=== PATIENT | male | born 1955 | race Caucasian/White ===

== ENCOUNTER 2017-11-22 14:23 | Inpatient (IN) | payer OTHER ==
[~2017-11-22] VITALS: Ht 172.7 cm; Wt 128.4 kg
[~2017-11-22 14:23] MED LIST: COUMADIN 10MG T10 M1 PO; COUMADIN PO; LOVENOX SQ; MICARDIS HCT 81 EACH PO; PERCOCET 5-3251 EACH PO; TARKA 4-240 MG1 EACH PO; ZOCOR 10 MG TAB10 MG PO
[2017-11-22 15:00] VITALS: BP 152/72
[2017-11-22] MEDS ORDERED: VENTOLIN HFA 1818 GM INH (15:18)
[2017-11-22] MEDS ORDERED: ATORVASTATIN CA40 MG PO (15:18)
[2017-11-22] MEDS ORDERED: NORCO 10-325 T1 EACH PO (15:19)
[2017-11-22] MEDS ORDERED: VERAPAMIL E.R240 M1 PO (15:20)
[2017-11-22] MEDS ORDERED: HYZAAR 100-12.1 EACH PO (15:20)
[2017-11-22] MEDS ORDERED: FISH OIL 1,001000 M2 PO (15:20)
[2017-11-22 15:27] LABS: ABSOLUTE BASOPHILS 0.2 thou/uL (0.0-0.2); ABSOLUTE EOSINOPHILS 0.5 thou/uL (0.0-0.7); ABSOLUTE LYMPHOCYTES 1.4 thou/uL (0.8-5.3); ABSOLUTE MONOCYTES 0.7 thou/uL (0.0-1.2); ABSOLUTE NEUTROPHILS 7.7 thou/uL (1.6-8.1); BASOPHILS 1.5 %; EOSINOPHILS 4.4 %; HEMATOCRIT 47.4 % (42.0-52.0); HEMOGLOBIN 15.9 gm/dL (14.0-18.0); LYMPHOCYTES 13.6 %; MCH 31.8 pg (26.0-34.0); MCHC 33.6 g/dL (28.0-37.0); MCV 94.7 fL (80.0-100.0); MONOCYTES 6.8 %; MPV 10.1 fl. (7.2-11.1); NUCLEATED RBCS 0 /100WBC; PLATELET COUNT* 126 thou/uL (150-400); POLYS 73.7 %; RBC 5.01 mil/uL (4.50-6.00); RDW-CV 14.5 % (10.5-14.5); WBC 10.5 thou/uL (4.0-11.0)
[2017-11-22 15:34] LABS: CREATININE 0.9 mg/dL (0.6-1.3)
[2017-11-22 15:53] LABS: PROTIME 97.7 Seconds (9.20-11.50)
[2017-11-22 15:55] LABS: INR 10.4
--- NOTE | 2017-11-22 18:59 | NUR ---
PATIENT ARRIVED DIRECT ADMIT AT 1500. PATIENT SETTLED TO ROOM. HISTORY, ASSESSMENT AND VITALS COMPLETED AND DOCUMENTED. PATIENT DENIES ANY PAIN. PATIENT HAS VENOUS STASIS TO BLE WITH A SKIN TEAR TO LLE. PATIENT IS UP AD JAISON IN ROOM. PATIENT DENIES ANY NEEDS AT THIS TIME. CALL LIGHT WITHIN REACH. WILL CONTINUE TO MONITOR.
[2017-11-22 20:00] VITALS: BP 161/84
--- NOTE | 2017-11-23 05:03 | NUR ---
PT SLEPT AT INTERVALS DURING THE NIGHT, NO IV, PLEASANT, UP AD JAISON, PRN PAIN MED AT HS FOR BACK PAIN, CALL LIGHT IN REACH, WILL CONTINUE TO MONITOR
[2017-11-23 08:00] VITALS: BP 137/65
[2017-11-23 09:37] LABS: PROTIME 58.8 Seconds (9.20-11.50)
[2017-11-23 09:45] LABS: INR 6.2
--- NOTE | 2017-11-23 16:09 | NUR ---
PER PATIENT'S STAFF NURSE, PATIENT TO HAVE UNNA BOOTS PLCED. HOWEVER, PATIENT LIKELY TO BE DISCHARGED TOMORROW. RECOMMENDED AND RECEIVED APPROVAL FOR USE OF TUBIGRIPS FOR EDEMA CONTROL INSTEAD THIS IS MANAGEABLE BY PATIENT AND HIS SPOUSE AT HOME. PATIENT INSTRUCTED ON ITS USE WITH GOOD UNDERSTANDING ACHIEVED. INSTRUCTED TO APPLY IN THE MORNING AN HE MAY REMOVE AT BEDTIME.
[2017-11-23 16:26] VITALS: BP 131/66
--- NOTE | 2017-11-23 17:06 | NUR ---
PT.SITTING ON SIDE OF BED. STATED HE LIVES WITH HIS . SHE CAN ASSIST HIM IF NEEDED. HE DOESN'T USE ANY DME. HAS A CANE IF NEEDED. NO HX OF HH OR SNF. HE IS INDEPENDENT AT HOME. HE SAID HE THINKS HE HAS BEEN TAKING THE WRONG DOSEAGE ON HIS COUMADIN. WOUND NURSE PUT TUBIGRIP STOCKINGS ON PT.FOR POOR CIRCULATION. HE SAID HE AND SHOULD BE ABLE TO APPLY THESE AT HOME. CM WILL FOLLOW.
[2017-11-23 17:43] LABS: URINE BILIRUBIN NEGATIVE (Negative); URINE BLOOD 3+ (Negative); URINE CLARITY CLOUDY; URINE COLOR BROWN; URINE GLUCOSE-RANDOM TRACE (Negative); URINE KETONES 1+ (Negative); URINE LEUKOCYTES 1+ (Negative); URINE NITRITE POSITIVE (Negative); URINE PROTEIN 3+ (Negative); URINE SPECIFIC GRAVITY 1.025 (1.005-1.030)
[2017-11-23 17:48] LABS: SQUAMOUS 0-3 Few /LPF (0-3); URINE RBC >20 Many /HPF (0-2)
[2017-11-23 17:49] LABS: BACTERIA >30 Many /HPF (None Seen); CASTS None Seen /LPF (None Seen); CRYSTALS None Seen /LPF (None Seen); URINE WBC >25 Many /HPF (0-5)
--- NOTE | 2017-11-23 18:17 | NUR ---
PATIENT UP IN CHAIR EATING DINNER. PATIENT IS UP AD JAISON IN ROOM. PATIENT HAD COMPLAINTS OF BACK PAIN THIS AM, TREATED ADEQUATELY WITH HYDROCODONE. PATIENT SEEN BY WOUND NURSE THIS AFTERNOON AND TUBIGRIPS APPLIED TO BLE. PATIENT DENIES ANY NEEDS AT THIS TIME. CALL LIGHT WITHIN REACH. WILL CONTINUE TO MONITOR.
[2017-11-23 20:00] VITALS: BP 151/71
[2017-11-24 04:53] LABS: HEMATOCRIT 44.2 % (42.0-52.0); HEMOGLOBIN 14.6 gm/dL (14.0-18.0); MCH 31.6 pg (26.0-34.0); MCV 95.8 fL (80.0-100.0); MPV 10.4 fl. (7.2-11.1); RBC 4.61 mil/uL (4.50-6.00); RDW-CV 14.2 % (10.5-14.5); WBC 7.6 thou/uL (4.0-11.0)
[2017-11-24 05:04] LABS: PROTIME 29.4 Seconds (9.20-11.50)
--- NOTE | 2017-11-24 05:23 | NUR ---
PT SLEPT SOUNDLY DURING THE NIGHT, UP AD JAISON, SLEPT WITH 02 AT 2L/NC, CALL LIGHT IN REACH, PRN PAIN MED AT HS, WILL CONTINUE TO MONITOR
[2017-11-24 05:57] LABS: INR 3.1
[2017-11-24 06:33] LABS: CALCIUM 8.6 mg/dL (8.5-10.1); CREATININE 0.7 mg/dL (0.6-1.3)
[2017-11-24 07:55] VITALS: BP 131/65
[2017-11-24 10:46] VITALS: BP 131/65
--- NOTE | 2017-11-24 11:35 | NUR ---
PATIENT A&OX4, ROOM AIR, NO IV ACCESS, UP AD JAISON, WITH STEADY GAIT. NO C/O PAIN/N/V. NO OTHER CONCERNS AT THIS TIME. D/C PHOTO TAKEN OF ABRASION ON LLE, DSG CHANGED. REVIEWED DISCHARGE PAPERWORK WITH PATIENT WHILE AT BEDSIDE. SPOKE WITH PATIENT THAT THERE ARE LABS THAT WERE DRAWN THAT RESULTS ARE PENDING AND TO MAKE SURE TO F/U WITH PCP FOR RESULTS. VERBALIZES UNDERSTANDING, WITH NO FURTHER QUESTIONS. PATIENT LEFT UNIT AT 1110 AMBULATORY WITH ALL BELONGINGS, NOTHING LEFT BEHIND. APPROPRIATE AND COOPORATIVE WITH CARE.
[2017-11-24 18:08] LABS: IgA 194 mg/dL (61-437); IgG 1002 mg/dL (700-1600); IgM 33 mg/dL (20-172)
[2017-11-27 15:10] LABS: GLOBULIN TOTAL 2.9 g/dL (2.2-3.9); M-SPIKE Not Observed g/dL (Not Observed)
[2017-11-28 09:08] LABS: URINE PROTEIN (MG/DL) 122.2 mg/dL (Not Estab.)
== END 2017-11-24 11:10 | disposition home or self-care (01) | DRG 813 ==
LOC: M.3W 14:23
PROVIDERS: ADMIT Internal Medicine
DX: D68.32 Hemorrhagic disorder due to extrinsic circulating anticoagulants (principal); N39.0 Urinary tract infection, site not specified; Z68.41 Body mass index [BMI] 40.0-44.9, adult; E66.01 Morbid (severe) obesity due to excess calories; I10 Essential (primary) hypertension; M48.00 Spinal stenosis, site unspecified; G47.33 Obstructive sleep apnea (adult) (pediatric); Z86.718 Personal history of other venous thrombosis and embolism; Z87.891 Personal history of nicotine dependence; Z79.01 Long term (current) use of anticoagulants; Z79.899 Other long term (current) drug therapy; R31.9 Hematuria, unspecified; T45.515A Adverse effect of anticoagulants, initial encounter

== ENCOUNTER 2021-04-27 09:52 | Inpatient (IN) | payer OTHER ==
[~2021-04-27] VITALS: Ht 172.7 cm; Wt 132.7 kg
--- NOTE | ~2021-04-27 | PROC ---
[address] [address] PROCEDURE REPORT Name: EAMON SAN Room: [address] IN M.R.#: [id number] Admission: 04/27/21 Attend Phys: Jason Nagy Discharge: Date of : 55 Report #: [id number] THIS REPORT FOR: cc: Carroll Chandler Steve T. DO [facility],Medical Records Staff ~ For GI report, please see the Provation report in Perceptive 7 content. By: [id number] Records Staff [place] /KAREN
--- NOTE | ~2021-04-27 | PROC ---
[address] [address] PROCEDURE REPORT Name: EAMON SAN Room: [address] IN M.R.#: [id number] Admission: 04/27/21 Attend Phys: Jason Nagy Discharge: 05/01/21 Date of : 55 Report #: [id number] THIS REPORT FOR: cc: Carroll Chandler Steve T. DO [facility],Medical Records Staff ~ For GI report, please see the Provation report in Perceptive 7 content. By: [id number] Records Staff [place] /KAREN
[~2021-04-27 09:52] MED LIST changes: +ATORVASTATIN CA40 MG PO; +FISH OIL 1,001000 M2 PO; +HYZAAR 100-12.1 EACH PO; +NORCO 10-325 T1 EACH PO; +VENTOLIN HFA 1818 GM INH; +VERAPAMIL E.R240 M1 PO
[2021-04-27 09:58] VITALS: BP 116/57
[2021-04-27 10:49] LABS: ABSOLUTE BASOPHILS 0.1 thou/uL (0.0-0.2); ABSOLUTE EOSINOPHILS 0.1 thou/uL (0.0-0.7); ABSOLUTE LYMPHOCYTES 0.8 thou/uL (0.8-5.3); ABSOLUTE MONOCYTES 0.6 thou/uL (0.0-1.2); ABSOLUTE NEUTROPHILS 8.6 thou/uL (1.6-8.1); EOSINOPHILS 0.5 %; HEMATOCRIT 20.7 % (42.0-52.0); LYMPHOCYTES 7.9 %; MCH 33.1 pg (26.0-34.0); MCHC 33.6 g/dL (28.0-37.0); MCV 98.5 fL (80.0-100.0); MONOCYTES 6.1 %; MPV 8.7 fl. (7.2-11.1); NUCLEATED RBCS 0 /100WBC; PLATELET COUNT* 249 thou/uL (150-400); POLYS 84.5 %; RDW-CV 16.8 % (10.5-14.5); WBC 10.2 thou/uL (4.0-11.0)
[2021-04-27 10:58] LABS: CALCIUM 8.1 mg/dL (8.5-10.1); CREATININE 0.9 mg/dL (0.6-1.3); POTASSIUM 3.9 mmol/L (3.5-5.1)
[2021-04-27 11:02] LABS: ALBUMIN 2.8 g/dL (3.4-5.0); TOTAL BILIRUBIN 0.3 mg/dL (<0.1-1.0); TOTAL PROTEIN 6.3 g/dL (6.4-8.2)
[2021-04-27 11:20] LABS: APTT 31.8 Seconds (25.0-31.3); INR 1.7; PROTIME 17.2 Seconds (9.20-11.50)
[2021-04-27 13:33] VITALS: BP 107/42
[2021-04-27 14:00] VITALS: BP 105/40
--- NOTE | 2021-04-27 15:45 | EKG ---
[place] [address] ELECTROCARDIOGRAM REPORT Name: EAMON SAN Annelise Room: [place] [address] ADM IN .R.#: [id number] Admission: 04/27/21 Attend Phys: Caleb Koo Discharge: Date of : 55 Date of Service: 04/27/21 1104 Report #: [id number] THIS REPORT FOR: //name// 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 04/27/21 1545 1104 1104 Denver Garland MD, [facility] /EPI
[2021-04-27 16:49] LABS: HEMATOCRIT 20.8 % (42.0-52.0); HEMOGLOBIN 7.1 gm/dL (14.0-18.0)
[2021-04-27 20:00] VITALS: BP 113/53
[2021-04-28 00:44] VITALS: BP 105/49
[2021-04-28 04:00] VITALS: BP 121/54
[2021-04-28 04:15] LABS: HEMATOCRIT 20.5 % (42.0-52.0); MCHC 34.1 g/dL (28.0-37.0); MCV 96.6 fL (80.0-100.0); MPV 8.5 fl. (7.2-11.1); RBC 2.13 mil/uL (4.50-6.00); RDW-CV 18.2 % (10.5-14.5); WBC 7.5 thou/uL (4.0-11.0)
--- NOTE | 2021-04-28 05:31 | NUR ---
PT SLEPT ON AND OFF OVERNIGHT. UP IN RECLINER FOR COMFORT. RFA IVF INFUSING PER PUMP. NPO SINCE MIDNIGHT, GI TO SEE PT TODAY. NO BLOODY STOOLS REPORTED OVERNIGHT. VOIDING WITHOUT DIFFICULTY. O2 2L NC PER HOME. RT INHALER PRN. TELE SR PAC. TOLERATING CLEARS BEFORE MIDNIGHT WITHOUT DIFFICULTY. ABLE TO USE CALL LITE AND MAKE NEEDS KNOWN.
[2021-04-28 09:05] VITALS: BP 111/53
[2021-04-28 12:58] VITALS: BP 117/53
[2021-04-28] MEDS ORDERED: FUROSEMIDE 40 M40 MG PO (13:20)
--- NOTE | 2021-04-28 13:53 | NUR ---
Pt is A&O. Resides at home with . Independent. Pt has a cane at home that he can use for mobility if needed. No hx of HH or SNF. Goal is home at dc, no needs anticipated. Pt to have EGD today, anticipate dc tomorrow.
[2021-04-28 16:31] VITALS: BP 109/52
[2021-04-28 20:00] VITALS: BP 115/57; BP 92/55
[2021-04-29] VITALS: BP 145/59
[2021-04-29 04:00] VITALS: BP 111/61
[2021-04-29 04:16] LABS: ABSOLUTE BASOPHILS 0.1 thou/uL (0.0-0.2); ABSOLUTE EOSINOPHILS 0.1 thou/uL (0.0-0.7); ABSOLUTE LYMPHOCYTES 0.8 thou/uL (0.8-5.3); ABSOLUTE MONOCYTES 0.8 thou/uL (0.0-1.2); ABSOLUTE NEUTROPHILS 8.2 thou/uL (1.6-8.1); BASOPHILS 0.5 %; EOSINOPHILS 0.6 %; HEMATOCRIT 21.2 % (42.0-52.0); HEMOGLOBIN 7.2 gm/dL (14.0-18.0); LYMPHOCYTES 8.1 %; MCH 33.2 pg (26.0-34.0); MCHC 33.8 g/dL (28.0-37.0); MCV 98.3 fL (80.0-100.0); MONOCYTES 8.1 %; MPV 8.6 fl. (7.2-11.1); NUCLEATED RBCS 0 /100WBC; PLATELET COUNT* 205 thou/uL (150-400); POLYS 82.7 %; RBC 2.16 mil/uL (4.50-6.00); RDW-CV 18.9 % (10.5-14.5); WBC 9.9 thou/uL (4.0-11.0)
[2021-04-29 04:28] LABS: INR 1.1; PROTIME 11.6 Seconds (9.20-11.50)
[2021-04-29 04:38] LABS: ALBUMIN 2.5 g/dL (3.4-5.0); CALCIUM 7.8 mg/dL (8.5-10.1); CREATININE 0.7 mg/dL (0.6-1.3); TOTAL BILIRUBIN 0.3 mg/dL (<0.1-1.0); TOTAL PROTEIN 5.9 g/dL (6.4-8.2)
--- NOTE | 2021-04-29 04:41 | NUR ---
ASSUMED PT CARE AT APPROX 1930. PT IS AWAKE AND ORIENTED X4. PT IS TRACING SR/ST ON THE FIRE CHIEF. PT IS NOT IN RESPIRATORY DISTRESS, NO DESATURATIONS NOTED ON 2L OF O2/NC. PT C/O LEFT SIDE RIB PAIN RELIEVED BY PAIN MEDS GIVEN PER NOV. NO ACUTE CHANGES THIS SHIFT. CALL LIGHT WITHIN REACH. HOURLY ROUNDING DONE FOR PT SAFETY.
--- NOTE | 2021-04-29 07:05 | NUR ---
CHANGE OF SHIFT REPORT GIVEN PATIENT SEEN IN ROOM SITTING IN CHAIR ASSUMED PATIENT CARE
[2021-04-29 08:00] VITALS: BP 114/52
[2021-04-29 12:01] VITALS: BP 118/60
--- NOTE | 2021-04-29 13:51 | NUR ---
Anticipate dc tomorrow. Pt to have colon tomorrow.
[2021-04-29 16:57] VITALS: BP 105/51
[2021-04-29 20:00] VITALS: BP 110/62
[2021-04-30] VITALS: BP 131/50
[2021-04-30 00:05] VITALS: BP 131/50
[2021-04-30 04:00] VITALS: BP 130/66
[2021-04-30 04:40] LABS: ABSOLUTE EOSINOPHILS 0.1 thou/uL (0.0-0.7); ABSOLUTE LYMPHOCYTES 0.6 thou/uL (0.8-5.3); ABSOLUTE MONOCYTES 0.9 thou/uL (0.0-1.2); ABSOLUTE NEUTROPHILS 7.2 thou/uL (1.6-8.1); BASOPHILS 0.5 %; EOSINOPHILS 0.7 %; HEMATOCRIT 20.8 % (42.0-52.0); LYMPHOCYTES 7.3 %; MCH 33.1 pg (26.0-34.0); MCHC 33.8 g/dL (28.0-37.0); MCV 97.8 fL (80.0-100.0); MONOCYTES 10.2 %; MPV 8.9 fl. (7.2-11.1); NUCLEATED RBCS 0 /100WBC; PLATELET COUNT* 206 thou/uL (150-400); POLYS 81.3 %; RBC 2.12 mil/uL (4.50-6.00); RDW-CV 17.5 % (10.5-14.5); WBC 8.8 thou/uL (4.0-11.0)
[2021-04-30 05:11] LABS: ANION GAP < 0 mmol/L (7-16); BUN 9 mg/dL (7-18); CALCIUM 7.8 mg/dL (8.5-10.1); CHLORIDE 105 mmol/L (98-107); CO2 34 mmol/L (21-32); CREATININE 0.7 mg/dL (0.6-1.3); GLUCOSE 98 mg/dL (70-99); SODIUM 138 mmol/L (136-145)
[2021-04-30 05:14] LABS: INR 1.1; PROTIME 11.4 Seconds (9.20-11.50)
--- NOTE | 2021-04-30 06:56 | NUR ---
PT COMPLETED BOWEL PREP ORDERED. LAST BM THIS NURSE SAW WAS WATERY YELLOW WITH SMALL AMOUNT FLECKS PRESENT. DULCOLAX TABS GIVEN THIS MORNING ORDERED. UP AD JAISON TO BR. O2 2L NC. ABLE TO USE CALL LITE AND MAKE NEEDS KNOWN.
[2021-04-30 08:57] VITALS: BP 120/49
--- NOTE | 2021-04-30 12:19 | NUR ---
Pt to dc home post colonoscopy today. No needs.
--- NOTE | 2021-04-30 15:08 | PATH ---
[address] [address] PATHOLOGY RPT PROCEDURE Name: MENADIEGO R Room: [address] IN M.R.#: [id number] Admission: 04/27/21 Date of : 55 Discharge: Report #: [id number] Path Case #: [id number] [facility] Accession Number: [id number] . 01 Material submitted: . Y - ANTRAL BIOPSY FOR H. PYLORI . 01 Clinical history: . EGD IN OR . 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 (ZACK:oh; 04/30/2021) . Special stain: H. pylori immuno QMS 04/30/2021 1148 Local . 02 Electronically signed: . Han Carpenter MD, Pathologist NPI- [id number] . 01 Gross description: . Received in formalin labeled "Mena, Diego, antral biopsy" is a fragment of rodriguez-brown soft tissue measuring 0.3 x 0.3 x 0.1 cm. The specimen is submitted entirely in A1. ([facility]; 04/29/2021) [facility] 04/30/2021 1146 Local . 02 Pathologist provided ICD-10: K29.50 . 02 CPT . 795962, [id number] Specimen Comment: A courtesy copy of this report has been sent to [phone] Specimen Comment: [phone], Specimen Comment: Report sent to , DR BARBOSA / DR JORDAN Performed at: 01 [facility] [address], [place] [address] MD Ketan Reynolds MD Phone: [phone] Performed at: 02 [facility] [address], [place], [place] [id number] MD Han Carpenter MD Phone: [phone]
[2021-04-30 16:00] VITALS: BP 111/50
[2021-04-30 20:00] VITALS: BP 136/72
[2021-05-01 01:12] VITALS: BP 102/54
[2021-05-01 04:29] LABS: HEMOGLOBIN 7.5 gm/dL (14.0-18.0); MCHC 32.8 g/dL (28.0-37.0); MCV 97.6 fL (80.0-100.0); MPV 8.8 fl. (7.2-11.1); RBC 2.36 mil/uL (4.50-6.00); RDW-CV 16.8 % (10.5-14.5)
[2021-05-01 04:35] LABS: CALCIUM 7.6 mg/dL (8.5-10.1); CREATININE 0.7 mg/dL (0.6-1.3)
--- NOTE | 2021-05-01 05:33 | NUR ---
PATIENT SLEPT WELL IN THE RECLINER. PT UP TO BATHROOM WITH USE OF CANE. PT IS SALINE LOCKED AND ON 2L PER NASAL CANNULA. PT ST ON THE WREATH AND GARLAND MAKER HAND. PT DENIES PAIN/NAUSEA. FREQUENTLY USED ITEMS AND CALL LIGHT WITHIN REACH. WILL CONTINUE TO MONITOR.
[2021-05-01 06:03] VITALS: BP 133/68
[2021-05-01 08:08] VITALS: BP 126/56
[2021-05-01] MEDS ORDERED: IRON325 PO (08:29)
[2021-05-01 11:20] VITALS: BP 126/56
[2021-05-01 13:58] VITALS: BP 126/56
--- NOTE | 2021-05-01 13:59 | NUR ---
PATIENT GIVEN DISCHARGE INSTRUCTIONS AND MEDICATIONS REVIEWED. IV REMOVED. PATIENT DENIES ANY PAIN/QUESTIONS/CONCERNS PRIOR TO DISHCARGE. PATIENT LEFT UNIT WITH PERSONAL BELONGINGS VIA W/C, ACCOMPANIED BY NURSING STAFF AT APPROX. 1358 TO MEET AT ER.
== END 2021-05-01 13:58 | disposition home or self-care (01) | DRG 377 ==
LOC: M.ERS 09:52 → M.TBA-ER 11:41 → M.2W 11:41
PROVIDERS: Internal Medicine; Internal Medicine Gastroenterology; Nurse Practitioner Family; ADMIT Internal Medicine; ATTEND Internal Medicine
PROC: 30233N1 Transfusion of Nonautologous Red Blood Cells into Peripheral Vein, Percutaneous Approach (ICD-10-PCS; principal; 2021-04-27)
PROC: 0DB68ZX Excision of Stomach, Via Natural or Artificial Opening Endoscopic, Diagnostic (ICD-10-PCS; 2021-04-28)
PROC: 0DJD8ZZ Inspection of Lower Intestinal Tract, Via Natural or Artificial Opening Endoscopic (ICD-10-PCS; 2021-04-30)
DX: K26.4 Chronic or unspecified duodenal ulcer with hemorrhage (principal); J12.9 Viral pneumonia, unspecified; D62 Acute posthemorrhagic anemia; D68.51 Activated protein C resistance; K29.70 Gastritis, unspecified, without bleeding; I10 Essential (primary) hypertension; K31.819 Angiodysplasia of stomach and duodenum without bleeding; D12.6 Benign neoplasm of colon, unspecified; K57.30 Diverticulosis of large intestine without perforation or abscess without bleeding; Z20.822 Contact with and (suspected) exposure to COVID-19; Z86.718 Personal history of other venous thrombosis and embolism; Z79.01 Long term (current) use of anticoagulants; Z79.899 Other long term (current) drug therapy; Z87.891 Personal history of nicotine dependence; Z72.89 Other problems related to lifestyle

== ENCOUNTER 2021-05-12 16:40 | Inpatient (IN) | payer OTHER ==
[~2021-05-12] VITALS: Ht 172.7 cm; Wt 122.5 kg
--- NOTE | ~2021-05-12 | PROC ---
[address] [address] PROCEDURE REPORT Name: EAMON SAN Room: [address] ADM IN M.R.#: [id number] Admission: 05/12/21 Attend Phys: Jason Christian Discharge: Date of : 55 Report #: [id number] THIS REPORT FOR: cc: Carroll Chandler Steve T. DO [facility],Medical Records Staff ~ For GI report, please see the Provation report in Perceptive 7 content. By: 1314Medical Records Staff [place] /KAREN
[~2021-05-12 16:40] MED LIST changes: +FUROSEMIDE 40 M40 MG PO; +IRON325 PO
[2021-05-12 16:44] VITALS: BP 136/73
[2021-05-12 17:30] LABS: HEMATOCRIT 20.9 % (42.0-52.0); MCH 27.1 pg (26.0-34.0); MCHC 30.2 g/dL (28.0-37.0); MCV 89.8 fL (80.0-100.0); MPV 8.6 fl. (7.2-11.1); NUCLEATED RBCS 0 /100WBC; PLATELET COUNT* 493 thou/uL (150-400); RBC 2.33 mil/uL (4.50-6.00); RDW-CV 21.2 % (10.5-14.5); WBC 24.1 thou/uL (4.0-11.0)
[2021-05-12 17:37] LABS: HEMOGLOBIN 6.3 gm/dL (14.0-18.0)
[2021-05-12 17:38] LABS: CALCIUM 8.3 mg/dL (8.5-10.1); CREATININE 0.9 mg/dL (0.6-1.3); POTASSIUM 3.9 mmol/L (3.5-5.1)
[2021-05-12 17:43] LABS: ALBUMIN 1.6 g/dL (3.4-5.0); TOTAL BILIRUBIN 0.2 mg/dL (<0.1-1.0)
[2021-05-12 17:44] LABS: PROTIME > 90.0 Seconds (9.20-11.50)
[2021-05-12 17:48] LABS: INR > 9.8
[2021-05-12 18:56] LABS: ABSOLUTE MONOCYTES 1.2 thou/uL (0.0-1.2); ABSOLUTE NEUTROPHILS 21.9 thou/uL (1.6-8.1)
[2021-05-12 18:57] LABS: HYPOCHROMASIA 2+; PLATELET ESTIMATE ADEQUATE; POLYCHROMASIA 1+
[2021-05-12 18:58] LABS: ANISOCYTOSIS 2+
[2021-05-12 22:00] VITALS: BP 103/65
--- NOTE | 2021-05-12 23:08 | NUR ---
BLOOD TRANSFUSION STARTED AT 2308. SEE BLOOD TRANSFUSION FLOW SHEET.
[2021-05-13] VITALS (7 sets, daily range): BP systolic 99–117; BP diastolic 48–66
[2021-05-13 11:19] LABS: PROTIME 42.5 Seconds (9.20-11.50)
[2021-05-13 11:25] LABS: INR 4.4
--- NOTE | 2021-05-13 12:37 | NUR ---
CM SPK WITH PT WHO WAS AT BESIDE. PT LIVES HOME WITH SPOUSE. PT HAD O2 APPLIED AND USES O2 AT HOME ON 5L PER IT WAS INCREASED FROM 3L. PT ALSO USES CANE. PT IS GENERALLY ACTIV, DRIVES A VEHICLE AND INDEPENDENT WITH ADLS. PT HAS NO HX WITH HH OR SNF. CM TO CON TO FOLLOW TO ASSIST WITH D/C NEEDS.
[2021-05-13 12:41] LABS: ABSOLUTE BASOPHILS 0.1 thou/uL (0.0-0.2); ABSOLUTE LYMPHOCYTES 0.7 thou/uL (0.8-5.3); ABSOLUTE MONOCYTES 1.5 thou/uL (0.0-1.2); ABSOLUTE NEUTROPHILS 22.4 thou/uL (1.6-8.1); BASOPHILS 0.4 %; EOSINOPHILS 0.1 %; HEMATOCRIT 20.7 % (42.0-52.0); MCH 27.4 pg (26.0-34.0); MCHC 30.6 g/dL (28.0-37.0); MCV 89.8 fL (80.0-100.0); MPV 8.6 fl. (7.2-11.1); NUCLEATED RBCS 0 /100WBC; PLATELET COUNT* 472 thou/uL (150-400); POLYS 90.5 %; RBC 2.31 mil/uL (4.50-6.00); RDW-CV 19.8 % (10.5-14.5); WBC 24.8 thou/uL (4.0-11.0)
[2021-05-13 12:51] LABS: HEMOGLOBIN 6.3 gm/dL (14.0-18.0)
[2021-05-14 02:49] LABS: HEMATOCRIT 22.7 % (42.0-52.0)
[2021-05-14 02:52] LABS: HEMOGLOBIN 6.9 gm/dL (14.0-18.0)
[2021-05-14 02:53] LABS: PROTIME 29.5 Seconds (9.20-11.50)
[2021-05-14 03:06] VITALS: BP 113/60; BP 121/58; BP 122/61; BP 132/61
[2021-05-14 03:20] LABS: ALBUMIN 1.4 g/dL (3.4-5.0); ALKALINE PHOSPHATASE 85 U/L (46-116); ANION GAP < 0 mmol/L (7-16); BUN 20 mg/dL (7-18); CHLORIDE 104 mmol/L (98-107); CO2 40 mmol/L (21-32); CREATININE 0.7 mg/dL (0.6-1.3); GLUCOSE 113 mg/dL (70-99); MAGNESIUM 2.1 mg/dL (1.8-2.4); POTASSIUM 4.3 mmol/L (3.5-5.1); SGOT 48 U/L (15-37); SGPT 36 U/L (30-65); SODIUM 143 mmol/L (136-145); TOTAL BILIRUBIN 0.5 mg/dL (<0.1-1.0); TOTAL PROTEIN 6.5 g/dL (6.4-8.2)
[2021-05-14 03:45] LABS: ABSOLUTE LYMPHOCYTES 0.4 thou/uL (0.8-5.3); ABSOLUTE MONOCYTES 0.8 thou/uL (0.0-1.2); ABSOLUTE NEUTROPHILS 23.6 thou/uL (1.6-8.1); BASOPHILS 0.2 %; LYMPHOCYTES 1.7 %; MCH 28.5 pg (26.0-34.0); MCHC 31.8 g/dL (28.0-37.0); MCV 89.7 fL (80.0-100.0); MONOCYTES 3.2 %; MPV 8.5 fl. (7.2-11.1); NUCLEATED RBCS 0 /100WBC; PLATELET COUNT* 452 thou/uL (150-400); POLYS 94.9 %; RBC 2.42 mil/uL (4.50-6.00); RDW-CV 18.2 % (10.5-14.5); WBC 24.9 thou/uL (4.0-11.0)
--- NOTE | 2021-05-14 04:47 | NUR ---
ASSUMED PT CARE AT 1910. NURSING ASSESSMENT COMPLETED AT START OF SHIFT. PT ON 6L NC. 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 2ND UNIT PRBC INFUSING THIS SHIFT, PT TOLERATING WELL. HOURLY ROUNDING COMPLETED. HIGH FALL PRECAUTIONS IN PLACE. NPO FOR COLONOSCOPY TODAY.
--- NOTE | 2021-05-14 07:14 | NUR ---
PAGE SENT TO DR. AMIN. PT BM'S NOT CLEAR THIS AM.
--- NOTE | 2021-05-14 07:38 | NUR ---
CALL BACK RECEIVED FROM DR. AMIN, NEW ORDERS RECEIVED. REPORT GIVEN TO JACKSON DEL RIO.
[2021-05-14 07:45] VITALS: BP 162/69
[2021-05-14 09:20] LABS: HEMATOCRIT 24.3 % (42.0-52.0); HEMOGLOBIN 7.8 gm/dL (14.0-18.0)
--- NOTE | 2021-05-14 09:40 | EKG ---
[place] [address] ELECTROCARDIOGRAM REPORT Name: CORRINELEEANNALFREDO PruittReyes Castelan Room: [address] ADM IN M.R.#: [id number] Admission: 05/12/21 Attend Phys: Gilberto Darling Discharge: Date of : 55 Date of Service: 05/13/21 1718 Report #: [id number] THIS REPORT FOR: //name// [facility] Test Date: 2021-05-13 Test Time: 17:18:20 Pat Name: EAMON SAN Department: Room: [address] Gender: M Rn Licensed Practical: : 1955 Requested By: Jorge Luis Gonzalez Order Number: [id number] Kia MD: Real Anderson Measurements Intervals [place] Rate: 112 P: 48 VA: 147 QRS: 46 QRSD: 89 T: 206 QT: 315 QTc: 430 Interpretive Statements Sinus tachycardia Atrial premature complex Low voltage, precordial leads Nonspecific T abnormalities, lateral leads Compared to ECG 04/27/2021 11:04:30 Atrial premature complex(es) now present Low QRS voltage now present T-wave abnormality now present Sinus rhythm no longer present Atrial abnormality no longer present Electronically Signed On 05-14-2021 9:40:34 CDT by Real Anderson [email or web address] <ELECTRONICALLY SIGNED> By: Real Anderson MD, [facility] 05/14/21 0940 1718 Real Anderson MD, [facility] /EPI
--- NOTE | 2021-05-14 10:27 | NUR ---
PLAN OF CARE: CM SPOKE TO THE PT TO DISCUSS DPOA FOR HEALTHCARE PER PT'S RN. PT ACCEPTS PRINTED INFO ABOUT DPOA AND FORM. HOWEVER PT DECLINES TO COMPLETE DPOA FORM AT THIS TTIME. CM OFFERED TO COMPLETE FORM WHILE PT INPT IF HE CHANGES HIS MIND. NO OTHER CM D/C PLANNING NEEDS ANTICIPATED. CM WILL REMAIN AVAILABLE TO ASSIST AND FOLLOW NEEDED.
--- NOTE | 2021-05-14 11:16 | NUR ---
Nutrition: Pt admitted with GIB, anemia. Seen for high BMI. Pt received transfusion PRBCs. Meds: fish oil, statin, lasix. Diet just advanced to CLD this AM. He was just opening drinks during our visit and hadn't tried any yet. Denied N/V, feels hungry. He said he usually weighed ~300#, but is down to 270# d/t no solid foods since Monday. Alb 1.4, prealb 8.6. Inadequate oral intake R/T current condition AEB GIB, NPO, CLD. Hopeful for good tolerance of po intake. Cease wt loss at 270#. Advance diet as appropriate. Mild risk.
[2021-05-14 12:20] VITALS: BP 114/66; BP 115/57; BP 131/61; BP 131/68
[2021-05-14 12:23] VITALS: BP 126/62
--- NOTE | 2021-05-14 13:20 | 2DMMODE ---
[place] [address] 2 D/M-MODE ECHOCARDIOGRAM Name: EAMON SAN Annelise Room: [address] ADM IN M.R.#: [id number] Admission: 05/12/21 Attend Phys: Gilberto Darling Discharge: Date of : 55 Date of Service: 05/14/21 1319 Report #: [id number] THIS REPORT FOR: cc: Carroll Chandler,Real Valerio MD [facility] ~ APPROVED REPORT Study performed: 05/14/2021 11:45:17 EXAM: Comprehensive 2D, Doppler, and color-flow Echocardiogram Patient Location: In-Patient Room #: 228 Status: routine BSA: 2.32 HR: 106 bpm BP: 162/69 mmHg Rhythm: NSR Other Information Study Quality: Good Indications Dyspnea 2D Dimensions IVSd: 11.68 (7-11mm) LVOT Diam: 19.73 (18-24mm) LVDd: 44.14 mm PWd: 11.68 (7-11mm) Ascending Ao: 33.59 (22-36mm) LVDs: 25.93 (25-40mm) Aortic Valve AoV Peak Kev.: 1.33 m/s AO Peak Gr.: 7.03 mmHg LVOT Max P.76 mmHg AO Mean Gr.: 3.87 mmHg LVOT Mean P.34 mmHg LVOT Max V: 0.83 m/s AO V2 VTI: 22.02 cm LVOT Mean V: 0.53 m/s NORMAN (VTI): 2.05 cm2 LVOT V1 VTI: 14.80 cm Left Ventricle The left ventricle is normal size. There is normal LV segmental wall motion. Mild concentric left ventricular hypertrophy. Left ventricular systolic function is normal. The left ventricular ejection fraction is within the normal range. LVEF is 60-65%. [place] [address] 2 D/M-MODE ECHOCARDIOGRAM Name: EAMON SAN Room: [address] IN M.R.#: [id number] Admission: 05/12/21 Attend Phys: Gilberto Darling Discharge: Date of : 55 Date of Service: 05/14/21 1319 Report #: [id number] study is not technically sufficient to allow evaluation of the LV diastolic function. Right Ventricle The right ventricle is normal size. The right ventricular systolic function is normal. Atria The left atrium size is normal. The right atrium size is normal. Aortic Valve The aortic valve is normal in structure. Mechanical aortic valve is present. No aortic regurgitation is present. There is no aortic valvular stenosis. Mitral Valve The mitral valve is normal in structure. There is trace mitral valve regurgitation noted. No evidence of mitral valve stenosis. Tricuspid Valve The tricuspid valve is normal in structure. There is no tricuspid valve regurgitation noted. Pulmonic Valve The pulmonary valve is normal in structure. There is no pulmonic valvular regurgitation. Great Vessels The aortic root is normal in size. IVC is normal in size and collapses >50% with inspiration. Pericardium There is no pericardial effusion. Left pleural effusion. <Conclusion> Mild concentric left ventricular hypertrophy. LVEF is 60-65%. <ELECTRONICALLY SIGNED> By: Real Anderson MD, FACC 05/14/21 1319 18 18 Real Anderson MD, FACC /INF
--- NOTE | 2021-05-14 16:13 | CON ---
[address] [address] CONSULTATION Name: EAMON SAN Annelise Room: [address] IN M.R.#: [id number] Admission: 05/12/21 Attend Phys: Jason Christian Discharge: Date of : 55 Report #: [id number] THIS REPORT FOR: cc: Carroll Chandler Steve T. DO Namin, Farid M. MD ~ cc: Carroll Chandler DO DATE OF CONSULTATION: 05/13/2021 Please note at the time of this dictation, the patient was seen and physically examined by myself. REASON FOR CONSULTATION: Acute anemia. HISTORY OF PRESENT ILLNESS: This is a 66-year-old male who presented to the Emergency Room after feeling very tired and fatigued. He went and saw his PCP who checked labs on him and was told that he needed to report to the Emergency Room because of his low hemoglobin. He was told his hemoglobin was below 7. Upon arrival, he was 6.3 and has received a unit of blood and waiting for further labs at this time. The patient states he has not had a bowel movement in a week. However, he has continued to have melanotic stools he states since he has gone home. In 11/2017, the patient was 14.6; on 05/01 when he went home, his hemoglobin was 7.5 and the patient states he has not been taking any iron supplementation since he has been home. The patient underwent an EGD and colonoscopy for the same reason, the end of April. EGD was completely normal with no signs of any active bleeding. Colonoscopy revealed 16 polyps that were sessile or pedunculated with marked redundant colon and diverticulosis. No biopsies or removal of polyps were done at that time and recommended he come back in a couple of months when he is able to get off of his blood thinner for removal of those polyps for further evaluation. ALLERGIES: No known drug allergies. MEDICATIONS FROM HOME: Include warfarin, Ventolin inhaler, Lipitor, Hyzaar, fish oil, verapamil, Lasix. PAST MEDICAL HISTORY: Hypertension, history of a DVT. He has factor V. History of a punctured lung. PAST SURGICAL HISTORY: He has had an aortic valve replacement. FAMILY HISTORY: Negative for any GI or female cancers. SOCIAL HISTORY: He denies any alcohol, tobacco [place] [address] CONSULTATION Name: EAMON SAN Room: [address]#: [id number] Admission: 05/12/21 Attend Phys: Jason Christian Discharge: Date of : 55 Report #: [id number] REVIEW OF SYSTEMS: Twelve-point review of systems is essentially negative except what is mentioned in the HPI. PHYSICAL EXAMINATION: VITAL SIGNS: 36.2, pulse 99, respirations 22, blood pressure 105/56. HEART: Regular rate and rhythm. LUNGS: Clear. ABDOMEN: Soft. Positive bowel sounds in all 4 quadrants with no masses or tenderness noted. LABORATORY DATA: Hemoglobin is 6.3 and getting a unit of blood, white count is 24.1, platelets 493. BUN is 29, creatinine is 0.9, GFR is 84. Total bili 0.2, alk phos 103, ALT 49, AST is 68. PT is 90, INR is 9.8. He has received some vitamin K. CT angio done on last admission showed only a fatty liver, but no abnormality was noted. IMPRESSION: 1. Acute anemia. 2. Melanotic stool. 3. Leukocytosis. 4. Constipation. 5. Hypercoagulability state. INR greater than 9. 6. Factor V. 7. History of aortic valve replacement and on warfarin. PLAN: 1. Tagged RBC scan. 2. Keep his hemoglobin greater than 7.5. 3. Dulcolax tablets 20 mg now. 4. Further recommendations to be made after the above has been noted. Thank you for allowing us to participate in this patient's care. Please do not hesitate to call with any questions regarding this consult. <ELECTRONICALLY SIGNED> By: Corinne Morton MD 05/14/21 1613 0848 [id number] Morton MD /nt
[2021-05-14 20:00] VITALS: BP 113/58
--- NOTE | 2021-05-14 22:41 | CON ---
[address] [address] CONSULTATION Name: EAMON SAN Room: [address] IN M.R.#: [id number] Admission: 05/12/21 Attend Phys: Jason Christian Discharge: Date of : 55 Report #: [id number] THIS REPORT FOR: cc: Carroll Chandler Steve T. DO Pervez, Adeel MD ~ DATE OF CONSULTATION: 05/13/2021 Consult has been requested by Dr. Donal Srivastava. INDICATION FOR CONSULTATION: Left lung collapse. HISTORY OF PRESENT ILLNESS: This 66-year-old gentleman who has an extensive history of smoking in the past. He has used an albuterol inhaler at home. He says he has oxygen at home. He does not have any other inhalers or nebulizers at home. He is anticoagulated and has an artificial heart valve. The patient was recently admitted to this hospital, had an upper GI as well as lower GI scopes on duodenal erosion and colon polyps. He was subsequently discharged and was feeling very weak and therefore came back to the Emergency Room. He upon evaluation at this time was noted to have a very markedly elevated INR at 9.8. He also is significantly anemic and his hemoglobin is 6.3. He had a chest x-ray performed, which shows near total collapse of the left lung, this is the reason for this consultation. He does have significant leukocytosis with a WBC count elevated to 24.8. The patient feels very weak; however, he still was sitting comfortably in a chair at the time of my evaluation and was on 6 liters oxygen via nasal cannula. He does have significant swelling of lower extremities. He has had disturbed sleep and daytime sleepiness. He says he has tried a CPAP or BiPAP in the past, but did not tolerate. REVIEW OF SYSTEMS: His review of systems for 2-point is negative except as mentioned above. PAST MEDICAL HISTORY: Artificial mechanical aortic valve in place. He is on anticoagulation with Coumadin, lung injury to the left lung in 2007. Most of the findings in the chest x-ray; however, are new compared with 2019 as mentioned below. Hypertension, DVT, factor 5 Leiden deficiency. Use of CPAP or BiPAP in the past, unable to tolerate. Use of oxygen at home. I do not have a measure of his left ventricular ejection fraction available. However, it is noted that he is on verapamil, which likely indicates that his left ventricular ejection fraction is normal. SOCIAL HISTORY: Extensive history of smoking in the past, [place] [address] CONSULTATION Name: CORRINEALFREDO LEIVAReyes Castelan Room: [address] IN M.R.#: [id number] Admission: 05/12/21 Attend Phys: Jason Christian Discharge: Date of : 55 Report #: [id number] No known history of heavy alcohol use or illegal drug use. CURRENT MEDICATIONS: List in [facility] reviewed. HOME MEDICATIONS: In [facility] reviewed. ALLERGIES: No known drug allergies. FAMILY HISTORY: No pertinent family history. PHYSICAL EXAMINATION: GENERAL: He is slow to respond to questions; however, he is alert, awake and oriented. VITAL SIGNS: He has a pulse of 114, blood pressure of 109/53, he is saturating 93% on 6 liters nasal cannula. He is afebrile. HEENT: Head is normocephalic and atraumatic. Pupils are equal and reactive. There is no throat erythema. NECK: Does not show raised JVP asymmetry, mass or lymph nodes. CHEST: Decreased expansion on inspection and palpation on the left side. On auscultation, breath sounds are decreased, almost absent on the left side. HEART: Regular. There is no murmur. ABDOMEN: Soft and nontender. LOWER EXTREMITIES: Show 2-3+ edema bilaterally. No calf tenderness. DIAGNOSTIC DATA: Chest x-ray is reviewed and as discussed above compared with CT chest performed last month and also compared with chest x-ray performed in 2019. The patient's lab work is in [facility] and this is also reviewed. The patient has a CT of the chest as well as abdomen ordered and this is pending at this time. ASSESSMENT AND PLAN: 1. Left lung collapse/atelectasis/pleural effusion. The patient has had lung injury in the past; however, most of these findings appear to be new compared with the chest x-ray performed in 2019. There is a CT of the abdomen and pelvis performed last month, in which the left lung is partially imaged. There is a pleural effusion noted on the left side. Both findings also do appear to be new compared with the CT abdomen and pelvis. We will await CT chest results. If as expected a significant pleural effusion is noted, then I would favor performing a thoracentesis first, but we may need to have a lower INR before thoracentesis is performed. If the patient's lungs fails to expand after thoracentesis was performed, then I would consider bronchoscopy as well, but again a more stable hemoglobin as well as INR will be desirable when bronchoscopy is performed. We will go ahead and order some Mucinex. For now, I am holding off on Mucomyst [address] [place] [address] CONSULTATION Name: EAMON SAN Room: [address] ADM IN M.R.#: [id number] Admission: 05/12/21 Attend Phys: Jason Christian Discharge: Date of : 55 Report #: [id number] nebulizers as with a high INR, it can cause bleeding. We will consider if INR is better later. 2. Pulmonary infiltrates. It appears highly likely that there are underlying pulmonary infiltrates. The patient is on Zosyn and I agree with the same. We will see if we can send off a sputum culture. We will also check a nasal swab for MRSA. Suspected chronic obstructive pulmonary disease. I ordered Brovana. I will also give him one dose of Solu-Medrol now. We will consider more steroids tomorrow. 3. Morbid obesity/suspected obstructive sleep apnea. He would benefit from a BiPAP while asleep. This may help the left lung to expand as well. I offered to the patient, he says he has used a CPAP or BiPAP in the past and was intolerant and does not desire to use the same at this time. 4. Fluid overload. The patient is currently on both Lasix and saline. I discontinued saline for now. Repeat labs in a.m. 5. Gastrointestinal bleed. I increased his PPI to b.i.d. GI service is on the case. I would await further input from them. Marked anemia is noted. 6. History of aortic valve replacement, on Coumadin, usp. 7. History of pacemaker placement. 8. History of factor 5 Leiden deficiency. Thank you for this consultation. <ELECTRONICALLY SIGNED> By: Addy Sargent MD 05/14/21 2241 [id number] Sargent MD /nt
[2021-05-15] VITALS (7 sets, daily range): BP systolic 101–123; BP diastolic 48–63
--- NOTE | 2021-05-15 04:29 | NUR ---
ASSUMED CARE OF PT AFTER REPORT AT 1930. PT A&OX4. VSS. PHYSICAL ASSESSMENT COMPLETED AND CHARTED. PT ON O2 AT 4L NC. PT TRACING SR/ST ON TELE. PT UPSTANDBY/UP WITH 1 ASSIST. PT DENIES ANY PAIN. PT SLEPT WELL IN THE RECLINER. CALL LIGHT WITHIN REACH.
[2021-05-15 05:25] LABS: INR 2.9; PROTIME 29.3 Seconds (9.20-11.50)
[2021-05-15 05:30] LABS: ALBUMIN 1.4 g/dL (3.4-5.0); ALKALINE PHOSPHATASE 80 U/L (46-116); ANION GAP < 0 mmol/L (7-16); BUN 27 mg/dL (7-18); CALCIUM 8.1 mg/dL (8.5-10.1); CHLORIDE 106 mmol/L (98-107); CO2 41 mmol/L (21-32); CREATININE 0.9 mg/dL (0.6-1.3); GLUCOSE 114 mg/dL (70-99); PHOSPHORUS* 4.1 mg/dL (2.5-4.9); POTASSIUM 4.1 mmol/L (3.5-5.1); SGOT 70 U/L (15-37); SGPT 53 U/L (30-65); SODIUM 145 mmol/L (136-145); TOTAL BILIRUBIN 0.3 mg/dL (<0.1-1.0); TOTAL PROTEIN 6.2 g/dL (6.4-8.2)
[2021-05-15 05:33] LABS: HEMOGLOBIN 7.7 gm/dL (14.0-18.0); MCH 27.1 pg (26.0-34.0); MCHC 31.9 g/dL (28.0-37.0); MCV 84.8 fL (80.0-100.0); MPV 8.5 fl. (7.2-11.1); NUCLEATED RBCS 0 /100WBC; PLATELET COUNT* 439 thou/uL (150-400); RBC 2.83 mil/uL (4.50-6.00); RDW-CV 23.8 % (10.5-14.5); WBC 22.9 thou/uL (4.0-11.0)
[2021-05-15 06:04] LABS: PREALBUMIN 9.9 mg/dL (18.0-35.7)
[2021-05-15 06:48] LABS: ABSOLUTE LYMPHOCYTES 0.7 thou/uL (0.8-5.3); ABSOLUTE MONOCYTES 0.2 thou/uL (0.0-1.2); PLATELET ESTIMATE ADEQUATE
[2021-05-15 08:38] LABS: BE 12.8 mmol/L (-2 to +3); pH 7.458 (7.340-7.450)
[2021-05-15 08:40] LABS: PCO2 55.2 mmHg (35.0-45.0); PO2 51.6 mmHg (75.0-100.0)
[2021-05-16 04:00] VITALS: BP 114/64
[2021-05-16 04:49] LABS: INR 2.2; PROTIME 22.7 Seconds (9.20-11.50)
--- NOTE | 2021-05-16 05:39 | NUR ---
PT A&O X 4. VSS ON 4L. NO C/O PAIN. UP TO BSC WITH SBA. PT SLEPT IN CHAIR THROUGH THE NIGHT. CALL LIGHT WITHIN REACH. WILL CONTINUE TO MONITOR.
[2021-05-16 08:42] VITALS: BP 117/60
[2021-05-16 12:05] VITALS: BP 116/62
[2021-05-16 12:06] VITALS: BP 116/62
[2021-05-16 16:48] VITALS: BP 101/56
[2021-05-16 20:00] VITALS: BP 107/50
--- NOTE | 2021-05-16 20:00 | NUR ---
RECEIVED REPORT AND ASSUMED CARE OF PT, ASSESSMENT COMPLETED. PT STAYING IN CHAIR AT BED WITH FEET DEPENDENT. BLE WITH 3+ EDEMA. O2 ON AT 4L/NC, SOB WITH ACTIVITY. TELEMETRY ON SHOWING SR. NO COMPLAINTS VOICED. WILL CONT TO MONITOR AND ASSIST NEEDED.
[2021-05-17 00:20] VITALS: BP 133/64
[2021-05-17 04:04] VITALS: BP 129/71
[2021-05-17 04:34] LABS: INR 2.5
[2021-05-17 04:39] LABS: ABSOLUTE LYMPHOCYTES 0.6 thou/uL (0.8-5.3); ABSOLUTE MONOCYTES 0.6 thou/uL (0.0-1.2); ABSOLUTE NEUTROPHILS 15.6 thou/uL (1.6-8.1); BASOPHILS 0.2 %; HEMATOCRIT 22.4 % (42.0-52.0); HEMOGLOBIN 7.1 gm/dL (14.0-18.0); LYMPHOCYTES 3.3 %; MCH 27.1 pg (26.0-34.0); MCHC 31.5 g/dL (28.0-37.0); MCV 86.2 fL (80.0-100.0); MONOCYTES 3.8 %; MPV 8.3 fl. (7.2-11.1); NUCLEATED RBCS 0 /100WBC; PLATELET COUNT* 420 thou/uL (150-400); POLYS 92.7 %; RDW-CV 22.9 % (10.5-14.5); WBC 16.9 thou/uL (4.0-11.0)
[2021-05-17 04:41] LABS: ALBUMIN 1.8 g/dL (3.4-5.0); ALKALINE PHOSPHATASE 65 U/L (46-116); ANION GAP < 0 mmol/L (7-16); BUN 28 mg/dL (7-18); CALCIUM 7.8 mg/dL (8.5-10.1); CHLORIDE 101 mmol/L (98-107); CO2 43 mmol/L (21-32); CREATININE 0.9 mg/dL (0.6-1.3); GLUCOSE 113 mg/dL (70-99); POTASSIUM 4.1 mmol/L (3.5-5.1); SGOT 40 U/L (15-37); SGPT 47 U/L (30-65); SODIUM 143 mmol/L (136-145); TOTAL BILIRUBIN 0.2 mg/dL (<0.1-1.0); TOTAL PROTEIN 6.3 g/dL (6.4-8.2)
--- NOTE | 2021-05-17 06:30 | NUR ---
REMAINS UP IN CHAIR ALL NIGHT. VOIDING WITHOUT DIFFICULTY. NO CHANGE IN ASSESSMENT. TELEMEMT SHOWING SR WITH OCC SB WITH SOUNDLY SLEEPING. HS GOALS OF REST AND SAFETY ACHIEVED. HOURLY ROUNDING OBSERVED.
[2021-05-17 07:45] VITALS: BP 129/68
[2021-05-17 12:26] VITALS: BP 119/58
--- NOTE | 2021-05-17 15:28 | NUR ---
PLAN OF CARE: PHYSICIN INFORMS OF PLAN FOR THE PT TO REMAIN INPT AT THIS TIME. PT REMAINS TELE STATUS. PULM CONSULT PENDING. CM WILL REMAIN AVAILABLE TO ASSIST AND FOLLOW NEEDED.
[2021-05-17 16:05] VITALS: BP 107/49
--- NOTE | 2021-05-17 16:47 | NUR ---
PT REMAINED ALERT AND ORIENTED. PT ANNOYED ABOUT GETTING IV LASIX AND STILL ON ABX. PT EDUCATED ON NEED FOR THEM. PT UP IN CHAIR ALL DAY. FALL RISK PRECAUTIONS IN PLACE. HOURLY ROUNDING COMPLETED. CALL LIGHT WITHIN REACH.
[2021-05-17 20:00] VITALS: BP 117/62
[2021-05-18] VITALS: BP 127/60
[2021-05-18 04:00] VITALS: BP 130/68
[2021-05-18 04:49] LABS: INR 2.1; PROTIME 21.4 Seconds (9.20-11.50)
[2021-05-18 04:50] LABS: HEMATOCRIT 24.1 % (42.0-52.0); HEMOGLOBIN 7.8 gm/dL (14.0-18.0); MCH 27.8 pg (26.0-34.0); MCHC 32.4 g/dL (28.0-37.0); MCV 85.8 fL (80.0-100.0); MPV 8.4 fl. (7.2-11.1); NUCLEATED RBCS 0 /100WBC; PLATELET COUNT* 441 thou/uL (150-400); RDW-CV 22.4 % (10.5-14.5); WBC 16.8 thou/uL (4.0-11.0)
[2021-05-18 05:14] LABS: ANION GAP < 0 mmol/L (7-16); BUN 26 mg/dL (7-18); CALCIUM 8.4 mg/dL (8.5-10.1); CHLORIDE 100 mmol/L (98-107); CO2 43 mmol/L (21-32); GLUCOSE 110 mg/dL (70-99); POTASSIUM 3.6 mmol/L (3.5-5.1); PREALBUMIN 20.4 mg/dL (18.0-35.7); SODIUM 142 mmol/L (136-145)
[2021-05-18 05:53] LABS: ABSOLUTE LYMPHOCYTES 1.2 thou/uL (0.8-5.3); ABSOLUTE MONOCYTES 0.7 thou/uL (0.0-1.2); ANISOCYTOSIS 1+; PLATELET ESTIMATE INCREASED; POIKILOCYTOSIS 1+; POLYCHROMASIA Occasional; TARGET CELLS Occasional
--- NOTE | 2021-05-18 06:02 | NUR ---
STAYS IN RECLINER STATING EASIER TO BREATH. O2 ON AT 4L/NC. PT ABLE TO COUGH UP SM AMT OF THICK PHLEGM. VITO LOWER LEGS WITH 2+ EDEMA DUE TO DEPENDENCY. ASKED FOR SLEEPER BUT TO LATE IN THE NIGHT TO GIVE. TELEMETRY ON SHOWING SR TO SB. HS GOALS OF REST AND SAFETY ACHIEVED.
[2021-05-18 07:30] VITALS: BP 91/58
--- NOTE | 2021-05-18 07:56 | CON ---
[address] [address] CONSULTATION Name: EAMON SAN Room: [address] IN .R.#: [id number] Admission: 05/12/21 Attend Phys: Jason Christian Discharge: Date of : 55 Report #: [id number] THIS REPORT FOR: cc: Carroll Chandler Steve T. DO Liston, Michael J. MD [facility] ~ cc: Carroll Chandler DO DATE OF CONSULTATION: 05/13/2021 INDICATION: Elevated INR, chronic anticoagulation, mechanical aortic valve replacement, factor V Leiden and GI bleeding. HISTORY OF PRESENT ILLNESS: The patient is a very pleasant 66-year-old gentleman who was admitted to the emergency room with complaints of anemia, GI bleeding, elevated INR with symptoms of fatigue and dyspnea. He does have a cough and sounds congested. He denies fevers. He denies chest pain. He is without other cardiac complaint at this time. PAST MEDICAL HISTORY: 1. Mechanical aortic valve replacement in 2009 for severe calcific aortic stenosis. Catheterization prior showed no occlusive coronary artery disease. 2. Factor V Leiden. 3. Chronic anticoagulation. 4. Hypertension. 5. History of DVT. 6. Pneumothorax 2007. FAMILY HISTORY: Noncontributory. SOCIAL HISTORY: The patient quit smoking remotely. Drinks alcohol rarely. HOME MEDICATIONS: Albuterol inhaler 1 puff daily, atorvastatin 40 mg at bedtime, fish oil 1000 mg daily, iron sulfate 325 mg daily, furosemide 40 mg p.o. daily, [place] 10/325 two tablets q.6h. p.r.n., losartan/hydrochlorothiazide 100/12.5 mg 1 tablet daily, verapamil ER 240 mg daily, warfarin 10 mg daily. ALLERGIES: None documented. PHYSICAL EXAMINATION: VITAL SIGNS: Blood pressure 109/53, pulse 109 and regular. GENERAL: This is a pleasant gentleman who is in no distress. HEENT: Normocephalic, atraumatic. Extraocular muscles intact. Mucous membranes are moist. NECK: Shows a thick neck without obvious jug[place] [address] CONSULTATION Name: EAMON SAN Room: [address] IN [facility].#: [id number] Admission: 05/12/21 Attend Phys: Jason Christian Discharge: Date of : 55 Report #: [id number] CHEST: Reveals diffusely decreased breath sounds, worse on the left than the right. I do not appreciate obvious wheezes. CARDIAC: Reveals a regular rhythm with aortic valve clicks are crisp and clear. ABDOMEN: Reveals a protuberant abdomen, soft and nontender. EXTREMITIES: Shows 3-4+ chronic edema with chronic skin changes to the thighs bilaterally. LABORATORY DATA: Reviewed. Sodium 141, potassium 3.9, chloride 101, bicarbonate 39, BUN 29, creatinine 0.9, serum glucose 119. LFTs within normal limits. Albumin 1.8. INR on arrival was 9.8, presently 4.4. White blood cell count 24.8, hemoglobin 6.3, platelet count 472,000. Chest x-ray shows opacification of the left lung consistent with either lung collapse or atelectasis. IMPRESSION AND RECOMMENDATIONS: 1. Status post mechanical aortic valve replacement for severe calcific aortic stenosis. Repeat echocardiogram at this time. The patient's INR remains supratherapeutic at this time. When the INR approaches normal with his vitamin K doses, will need to bridge with heparin or Lovenox. 2. Opacification of the left lung. Etiology not clear. Consider CT scan and pulmonary evaluation. 3. Chronic edema. We will attempt a more aggressive diuresis while in hospital. 4. Severe anemia. Transfuse for hemoglobin of at least 7 or 8. 5. Active GI bleeding. Gastroenterology following. 6. Factor V Leiden. The patient has been chronically anticoagulated with warfarin and does have clotting abnormalities in the past. Ultimately, once gastrointestinal bleeding source identified and controlled, we will need to continue chronic anticoagulation. <ELECTRONICALLY SIGNED> By: Jorge Luis Gonzalez MD, FACC 05/18/21 0756 1545 [id number] Gonzalez MD, FACC /nt
[2021-05-18 12:10] VITALS: BP 97/50
--- NOTE | 2021-05-18 15:34 | NUR ---
PLAN OF CARE: PHYSICIAN INFORMS OF PLAN FOR THE PT TO REMAIN INPT AT THIS TIME. PT REMAINS TELE STATUS. PULM CONSULTED. CM WILL REMAIN AVAILABLE TO ASSIST AND FOLLOW NEEDED.
[2021-05-18 16:00] VITALS: BP 102/55
--- NOTE | 2021-05-18 16:37 | NUR ---
PT REMAINED ALERT AND ORIENTED. PT RESTING IN CHAIR. BIPAP ORDERED. FALL RISK PRECAUTIONS IN PLACE. HEART MONITORED. HOURLY ROUNDING COMPLETED. CALL LIGHT WITHIN REACH.
[2021-05-18 20:05] VITALS: BP 116/58
[2021-05-19 00:30] VITALS: BP 124/61
--- NOTE | 2021-05-19 02:34 | NUR ---
ASSUMED CARE OF PT AT 1900. PT IS ALERT AND ORIENTED. VSS. PT HAS PLUS 4 EDAMA. PT IS ON 4 LITERS O2. PT IS IN SINUS RYTHM ON THE TELEMETRY. PT IS RESTING COMFORTABLY IN BED. RESPIRATIONS ARE EVEN AND NONLABORED. WILL CONTINUE TO MONITOR PT.
[2021-05-19 04:13] LABS: CALCIUM 8.3 mg/dL (8.5-10.1); CREATININE 1.1 mg/dL (0.6-1.3); POTASSIUM 3.8 mmol/L (3.5-5.1)
[2021-05-19 04:16] LABS: INR 1.5; PROTIME 15.6 Seconds (9.20-11.50)
[2021-05-19 04:17] VITALS: BP 121/58
[2021-05-19 07:25] VITALS: BP 113/56
--- NOTE | 2021-05-19 10:07 | PATH ---
[address] [address] PATHOLOGY RPT PROCEDURE Name: CORRINEALFREDO LEIVAReyes Castelan Room: [address] IN M.R.#: [id number] Admission: 05/12/21 Date of : 55 Discharge: Report #: [id number] Path Case #: [id number] [facility] Accession Number: [id number] . 01 Material submitted: . colon - DISTAL DESCENDING COLON POLYP. Modifiers: distal, descending . 01 Clinical history: . COLONOSCOPY GI BLEED . 02 Diagnosis: Distal descending colon polyp: - Tubular adenoma, negative for high grade dysplasia. . (ZACK:mml; 05/18/2021) [facility] 05/18/2021 [facility]3 Local . 02 Electronically signed: . Han Carpenter MD, Pathologist NPI- [id number] . 01 Gross description: . The specimen is received in formalin, labeled "Diego Vance, distal descending colon polyp". Received is a single segment of pale rodriguez tissue measuring 1.1 cm in maximum dimensions. The surgical margin is inked. The specimen is bisected and submitted entirely in cassette A1. ([facility]; 05/17/2021) NRI/NRI 05/17/2021 1539 Local . 02 Pathologist provided ICD-10: D12.4 . 02 CPT . [id number] Specimen Comment: A courtesy copy of this report has been sent to [phone] Specimen Comment: [phone], Specimen Comment: Report sent to , DR DOMINGO / DR BARBOSA Performed at: [address], [place] [address] MD Ketan Reynolds MD Phone: [phone] Performed at: 02 [facility] [address], [place], [place] [address] MD Han Carpenter MD Phone: [phone]
[2021-05-19 12:00] VITALS: BP 98/54
--- NOTE | 2021-05-19 15:19 | NUR ---
PLAN OF CARE: PHYSICIAN INFORMS OF PLAN FOR THE PT TO REMAIN INPT AT THIS TIME. NO CM D/C PLANNING NEEDS ANTICIPATED. CM WILL REMAIN AVAILABLE TO ASSIST AND FOLLOW NEEDED.
[2021-05-19 16:00] VITALS: BP 114/50
--- NOTE | 2021-05-19 16:30 | NUR ---
PT REMAINED ALERT AND ORIENTED. UNABLE TO DO THORACENTESIS TODAY DUE TO NOT ENOUGHT FLUID IN CHEST. BRONCHOSCOPY PLANNED FOR MONDAY. FALL RISK PRECAUTIONS IN PLACE. HOURLY ROUNDING COMPLETED. CALL LIGHT WITHIN REACH.
[2021-05-19 19:35] VITALS: BP 101/53
[2021-05-20] VITALS: BP 128/68
--- NOTE | 2021-05-20 03:21 | NUR ---
ASSUMED CARE OF PT AT 1900. PT IS ALERT AND ORIENTED. VSS. PERRLA. NO COMPLAINTS OF PAIN. PT IS ON 4 LITERS O2. PT IS IN SINUS RYTHM ON THE TELEMETRY. PT IS RESTING COMFORTABLY IN BED. RESPIRATIONS ARE EVEN AND NONLABORED. WILL CONTINUE TO MONITOR PT.
[2021-05-20 04:00] VITALS: BP 133/61
[2021-05-20 04:23] LABS: ABSOLUTE BASOPHILS 0.1 thou/uL (0.0-0.2); ABSOLUTE LYMPHOCYTES 0.6 thou/uL (0.8-5.3); ABSOLUTE MONOCYTES 1.1 thou/uL (0.0-1.2); ABSOLUTE NEUTROPHILS 13.9 thou/uL (1.6-8.1); BASOPHILS 0.3 %; HEMATOCRIT 27.2 % (42.0-52.0); HEMOGLOBIN 8.5 gm/dL (14.0-18.0); LYMPHOCYTES 3.6 %; MCH 26.6 pg (26.0-34.0); MCHC 31.1 g/dL (28.0-37.0); MCV 85.6 fL (80.0-100.0); MONOCYTES 6.9 %; MPV 8.7 fl. (7.2-11.1); NUCLEATED RBCS 0 /100WBC; PLATELET COUNT* 405 thou/uL (150-400); POLYS 89.2 %; RBC 3.18 mil/uL (4.50-6.00); RDW-CV 22.1 % (10.5-14.5); WBC 15.6 thou/uL (4.0-11.0)
[2021-05-20 04:39] LABS: INR 1.2; PROTIME 12.6 Seconds (9.20-11.50)
[2021-05-20 04:45] LABS: ALBUMIN 2.7 g/dL (3.4-5.0); CALCIUM 8.4 mg/dL (8.5-10.1); CREATININE 1.1 mg/dL (0.6-1.3); MAGNESIUM 2.4 mg/dL (1.8-2.4); POTASSIUM 3.4 mmol/L (3.5-5.1); TOTAL BILIRUBIN 0.4 mg/dL (<0.1-1.0); TOTAL PROTEIN 6.9 g/dL (6.4-8.2)
[2021-05-20 08:00] VITALS: BP 140/66
[2021-05-20 12:00] VITALS: BP 113/65
[2021-05-20 16:00] VITALS: BP 108/43
[2021-05-20 17:33] LABS: CALCIUM 8.7 mg/dL (8.5-10.1); CREATININE 1.2 mg/dL (0.6-1.3); MAGNESIUM 2.1 mg/dL (1.8-2.4); POTASSIUM 3.5 mmol/L (3.5-5.1)
--- NOTE | 2021-05-20 18:39 | NUR ---
ASSUMED CARE OF PT AT 0730. PT A&0X4, HAD BRONCHOCSCOPY TODAY, UPON RETURNING FROM BRONCH PT ON 12L HIGH FLOW NC SAT MID 90'S. PT CURRENTLY SITTING UP IN THE CHAIR, DENIES ANY SHORTNESS OF BREATH OR PAIN. TRACING SR ON THE WINCH STRIPPER. PT WAS NPO TIL 1730-TOLERATING THIN LIQUIDS AND SOLIDS FOR DINNER. AT BEDSIDE THROUGHOUT SHIFT AND UPDATED ON CURRENT PLAN OF CARE. AM ASSESSMENT CHARTED. MEDICATIONS PER NOV. PT REPOSITIONS SELF WITH REMINDERS. HOURLY ROUNDING OBSERVED. BED IN LOW POSITION. CALL LIGHT WITHIN REACH. WILL CONTINUE PLAN OF CARE.
[2021-05-21 02:35] VITALS: BP 110/60
[2021-05-21 06:00] VITALS: BP 103/62
[2021-05-21 06:02] LABS: HEMATOCRIT 28.3 % (42.0-52.0); HEMOGLOBIN 8.8 gm/dL (14.0-18.0); MCH 26.6 pg (26.0-34.0); MCHC 31.1 g/dL (28.0-37.0); MCV 85.5 fL (80.0-100.0); MPV 8.9 fl. (7.2-11.1); RBC 3.32 mil/uL (4.50-6.00); RDW-CV 21.8 % (10.5-14.5)
[2021-05-21 06:15] LABS: INR 1.1; PROTIME 11.6 Seconds (9.20-11.50)
[2021-05-21 06:48] LABS: ALBUMIN 2.9 g/dL (3.4-5.0); CALCIUM 8.8 mg/dL (8.5-10.1); CREATININE 1.3 mg/dL (0.6-1.3); MAGNESIUM 2.4 mg/dL (1.8-2.4); POTASSIUM 3.9 mmol/L (3.5-5.1); TOTAL BILIRUBIN 0.4 mg/dL (<0.1-1.0); TOTAL PROTEIN 7.3 g/dL (6.4-8.2)
[2021-05-21 07:45] VITALS: BP 134/57
[2021-05-21 12:15] VITALS: BP 128/73
[2021-05-21] MEDS ORDERED: WARFARIN SODIU7.5 MG PO (13:51)
[2021-05-21] MEDS ORDERED: ENOXAPARIN150 MG/11 SUBQ (13:51)
[2021-05-21] MEDS ORDERED: AUGMENTIN 875-1 EACH PO (13:51)
[2021-05-21] MEDS ORDERED: POTASSIUM20 PO (13:54)
[2021-05-21] MEDS ORDERED: PROTONIX40 M2 PO (13:54)
[2021-05-21] MEDS ORDERED: METOLAZONE 5 MG5 MG PO (13:54)
[2021-05-21] MEDS ORDERED: DEXAMETHASONE 22 M1 PO (13:54)
[2021-05-21 14:40] VITALS: BP 128/73
--- NOTE | 2021-05-21 15:07 | NUR ---
ASSUMED CARE OF PT AT 0730. PT A&0X4, DENIES ANY PAIN OR SHORTNESS OF BREATH AT THIS TIME. TRACING SR ON THE TROUBLE TRACER. ON 4-5 L NC SAT MID 90'S-HOME DOSE. DISCHARGE ORDERS RECEIVED. DISCHARGE INSTRUCTIONS, CARE NOTES, E SCRIPTS AND FOLLOW UP APPTS GIVEN TO PT. PT COMMUNICATES UNDERSTANDING OF DISCHARGE TEACHING. IV AND TROUBLE TRACER REMOVED. PT DISCHARGED WITH ALL BELONGINGS AND PAPERWORK VIA WHEELCHAIR WITH NURSING STAFF TO FAMILY OWN PERSONAL VEHICLE.
--- NOTE | 2021-05-21 21:16 | OP ---
[facility] [address] [place] [address] OPERATIVE REPORT Name: EAMON SAN Room: [address] IN M.R.#: [id number] Admission: 05/12/21 Attend Phys: Jason Christian Discharge: 05/21/21 Date of : 55 Report #: [id number] THIS REPORT FOR: cc: Carroll Chandler Steve T. DO Pervez, Adeel MD ~ DATE OF SURGERY: 05/12/2021 INDICATION FOR PROCEDURE: Mucus plugging. CONSENT: Informed consent was obtained from the patient. SEDATION: The patient was administered 3 mg of Versed and 100 mcg of fentanyl. POSTPROCEDURE DIAGNOSIS: Copious thick white mucus was seen throughout the left bronchial tree. The left mainstem was partially occluded with mucus, which was cleared. DESCRIPTION OF PROCEDURE: The patient was transferred to the bronchoscopy suite where the respiratory therapist proceeded to repairing the upper airway using the standard protocol after which I elected to perform this procedure through the patient's mouth. The patient was not able to lay completely flat due to back deformities and therefore, I had to bent over and it was in an awkward position to perform the procedure; however, I was able to adequately perform the procedure. The bronchoscope was advanced through the mouthguard to visualize the vocal cords without difficulty, which were sprayed with 4% Xylocaine, 10 mL after which the bronchoscope was advanced further into the trachea and another 3 mL of 2% Xylocaine were instilled in the trachea and another 3 mL in the right as well as left main bronchus. I now proceeded to examining the entire bronchial tree. There was thick white mucus, which was occluding the left mainstem bronchus where there was a thick white mucus seen in small quantities peripherally in the left bronchial tree as well. Small amounts of white mucus was seen in the right side. There were no endobronchial lesions. There were no additional findings. I collected the mucus in a trap. We also instilled, I estimate around 30 mL of saline to assist with suctioning. Around 20 mL of the mucus from the left mainstem were collected in a trap. After the trap was removed and I would estimate that around 30 or 40 mL of additional mucus was subsequently suctioned out as well, primarily from the left bronchial tree and a small amount from the right bronchial tree as well. At the end of the procedure, the patient was stable. The specimens were collected [place] [address] OPERATIVE REPORT Name: EAMON SAN Room: [address] IN .R.#: [id number] Admission: 05/12/21 Attend Phys: Jason Christian Discharge: 05/21/21 Date of : 55 Report #: [id number] The patient has a previous history of obstructive sleep apnea and desaturations while asleep. Therefore, I instructed the recovery room nurse to administer Romazicon and Narcan in case the patient's O2 saturations drifted downwards during the recovery process. I would have placed the patient on a BiPAP; however, the patient is a BiPAP intolerant. The patient's recovery room nurse did later on inform me that she felt that O2 saturations were decreasing and therefore she did administer the reversal agents. I came over and saw the patient subsequently and he was stable, oxygenating well and did not have any complications as a result of this procedure. The specimens collected had been sent to the laboratory and will be followed up. <ELECTRONICALLY SIGNED> By: Addy Sargent MD 05/21/21 2116 1830 [id number] Sargent MD /nt
== END 2021-05-21 15:10 | disposition home health service (06) | DRG 393 ==
LOC: M.ERS 16:40 → M.2W 18:07 → M.TBA-ER 18:07 → M.2W 05-13 10:26
PROVIDERS: Emergency Medicine; Internal Medicine; Internal Medicine Cardiovascular Disease; Internal Medicine Critical Care Medicine; ADMIT Internal Medicine; ATTEND Internal Medicine
PROC: 0BC38ZZ Extirpation of Matter from Right Main Bronchus, Via Natural or Artificial Opening Endoscopic (ICD-10-PCS; principal; 2021-05-12)
PROC: 30233N1 Transfusion of Nonautologous Red Blood Cells into Peripheral Vein, Percutaneous Approach (ICD-10-PCS; principal; 2021-05-12)
PROC: 0BC78ZZ Extirpation of Matter from Left Main Bronchus, Via Natural or Artificial Opening Endoscopic (ICD-10-PCS; principal; 2021-05-12)
PROC: 0DBM8ZZ Excision of Descending Colon, Via Natural or Artificial Opening Endoscopic (ICD-10-PCS; 2021-05-14)
PROC: 5A0935A Assistance with Respiratory Ventilation, Less than 24 Consecutive Hours, High Flow/Velocity Cannula (ICD-10-PCS; 2021-05-15)
PROC: 5A0935A Assistance with Respiratory Ventilation, Less than 24 Consecutive Hours, High Flow/Velocity Cannula (ICD-10-PCS; 2021-05-16)
PROC: 5A0935A Assistance with Respiratory Ventilation, Less than 24 Consecutive Hours, High Flow/Velocity Cannula (ICD-10-PCS; 2021-05-17)
DX: D12.4 Benign neoplasm of descending colon (principal); J15.6 Pneumonia due to other Gram-negative bacteria; J96.21 Acute and chronic respiratory failure with hypoxia; D62 Acute posthemorrhagic anemia; D68.59 Other primary thrombophilia; D68.51 Activated protein C resistance; J98.11 Atelectasis; J91.8 Pleural effusion in other conditions classified elsewhere; J44.0 Chronic obstructive pulmonary disease with (acute) lower respiratory infection; T45.515A Adverse effect of anticoagulants, initial encounter; Z20.822 Contact with and (suspected) exposure to COVID-19; I10 Essential (primary) hypertension; E66.01 Morbid (severe) obesity due to excess calories; K64.8 Other hemorrhoids; G47.30 Sleep apnea, unspecified; Z79.01 Long term (current) use of anticoagulants; Z86.718 Personal history of other venous thrombosis and embolism; Z95.2 Presence of prosthetic heart valve; Z79.899 Other long term (current) drug therapy; Z87.891 Personal history of nicotine dependence; Z79.51 Long term (current) use of inhaled steroids; Z95.0 Presence of cardiac pacemaker; Y92.89 Other specified places as the place of occurrence of the external cause

== ENCOUNTER 2021-05-23 23:22 | Inpatient (IN) | payer OTHER ==
[~2021-05-23] VITALS: Ht 170.2 cm; Wt 124.7 kg
--- NOTE | ~2021-05-23 | PROC ---
[address] [address] PROCEDURE REPORT Name: EAMON SAN Room: [address] IN M.R.#: [id number] Admission: 05/24/21 Attend Phys: Jason Nagy Discharge: Date of : 55 Report #: [id number] THIS REPORT FOR: cc: Carroll Chandler Steve T. DO [facility],Medical Records Staff ~ For GI report, please see the provation report in [employer] 7 content. By: [facility]2Medical Records Staff [place] /KAREN
[~2021-05-23 23:22] MED LIST changes: +AUGMENTIN 875-1 EACH PO; +DEXAMETHASONE 22 M1 PO; +ENOXAPARIN150 MG/11 SUBQ; +METOLAZONE 5 MG5 MG PO; +POTASSIUM20 PO; +PROTONIX40 M2 PO; +WARFARIN SODIU7.5 MG PO
[2021-05-23 23:24] VITALS: BP 141/61
[2021-05-24 00:11] LABS: HEMATOCRIT 23.4 % (42.0-52.0); HEMOGLOBIN 7.2 gm/dL (14.0-18.0); MCH 25.8 pg (26.0-34.0); MCHC 30.6 g/dL (28.0-37.0); MCV 84.2 fL (80.0-100.0); RBC 2.78 mil/uL (4.50-6.00); RDW-CV 20.9 % (10.5-14.5); WBC 15.6 thou/uL (4.0-11.0)
[2021-05-24 00:16] LABS: CREATININE 1.4 mg/dL (0.6-1.3); POTASSIUM 3.9 mmol/L (3.5-5.1)
[2021-05-24 00:18] LABS: APTT 27.1 Seconds (25.0-31.3); INR 1.4; PROTIME 14.6 Seconds (9.20-11.50)
[2021-05-24 00:22] LABS: ALBUMIN 2.5 g/dL (3.4-5.0); TOTAL BILIRUBIN 0.3 mg/dL (<0.1-1.0)
[2021-05-24 04:00] VITALS: BP 132/74
[2021-05-24 04:56] VITALS: BP 133/72
--- NOTE | 2021-05-24 08:14 | NUR ---
RECIEVED PT FROM ED UPON ARRIVAL TO UNIT PT AMBULATED FROM GURNEY TO CHAIR. PT STATES HE PREFER TO BE SIT IN THE RECLINER. SOA , O2 @ 4L ON , PT USE HOME 02 . PT NOTED TO HAVE BLOOD ON SHORTS, WHEN REMOVED, NOTED LARGE BLOOD CLOTS , PT DENIES DIZZINESS WHEN STOOD TO REMOVE SHORT. ASSESSMENT COMPLETED AND DATA BASE COMPLETED.POC DISCUSSED PT VARBALIZED UNDERTSANDING AND AGREEABLE.
[2021-05-24 09:00] VITALS: BP 134/71
--- NOTE | 2021-05-24 09:35 | NUR ---
pt readmission, d/c on monday. pt indicated he rtrn'd to [facility] b/c he was "passing a lot of blood" pt lives home with his . pt use 4l of o2 at home and a cane for gait. pt independent with adls. cm to cont to follow.
[2021-05-24 12:02] LABS: ABSOLUTE LYMPHOCYTES 0.9 thou/uL (0.8-5.3); ABSOLUTE MONOCYTES 1.3 thou/uL (0.0-1.2); ABSOLUTE NEUTROPHILS 12.6 thou/uL (1.6-8.1); BASOPHILS 0.2 %; HEMATOCRIT 20.6 % (42.0-52.0); LYMPHOCYTES 6.2 %; MCH 25.4 pg (26.0-34.0); MCHC 29.6 g/dL (28.0-37.0); MCV 85.6 fL (80.0-100.0); MONOCYTES 8.8 %; MPV 8.2 fl. (7.2-11.1); NUCLEATED RBCS 0 /100WBC; PLATELET COUNT* 292 thou/uL (150-400); POLYS 84.8 %; RBC 2.41 mil/uL (4.50-6.00); WBC 14.8 thou/uL (4.0-11.0)
[2021-05-24 12:14] LABS: ALBUMIN 2.4 g/dL (3.4-5.0); CALCIUM 7.9 mg/dL (8.5-10.1); CREATININE 1.2 mg/dL (0.6-1.3); POTASSIUM 4.3 mmol/L (3.5-5.1); TOTAL BILIRUBIN 0.3 mg/dL (<0.1-1.0); TOTAL PROTEIN 5.5 g/dL (6.4-8.2)
[2021-05-24 12:15] LABS: HEMOGLOBIN 6.1 gm/dL (14.0-18.0)
--- NOTE | 2021-05-24 13:38 | NUR ---
Nutrition: Pt admitted with GIB and anemia. Pt usually weighs in 270s. Currently NPO for EGD - now complete. He will be started on CLD. Spoke with family this morning as pt was out of room in EGD. Family stated he has been eating pretty well. Last meal was last night, per family. Consult was received for OBE. BG 102, alb 2.4, prealb 40.9. No nutrition interventions needed at this time. Consider mild risk. RD available for further needs.
--- NOTE | 2021-05-24 14:37 | NUR ---
PT TO NUCLEAR MEDICINE FOR RED BLOOD CELL TAGGING TEST VIA WC.
[2021-05-24 16:00] VITALS: BP 126/60
--- NOTE | 2021-05-24 16:40 | CON ---
[facility] [address] [place] [address] CONSULTATION Name: EAMON SAN Annelise Room: [address] IN M.R.#: [id number] Admission: 05/24/21 Attend Phys: Jason Nagy Discharge: Date of : 55 Report #: [id number] THIS REPORT FOR: cc: Carroll Chandler Steve T. DO Vardakis, Gregory DO ~ DATE OF CONSULTATION: 05/24/2021 Please note at the time of this dictation, the patient was seen and physically examined by myself. HISTORY OF PRESENT ILLNESS: This is a 66-year-old male who presented back to the emergency room after going home. ALLERGIES: No known drug allergies. MEDICATIONS FROM HOME: Include Lovenox, Augmentin, warfarin, K-Dur, metolazone, Protonix b.i.d., dexamethasone and ferrous sulfate along with Lasix, verapamil, fish oil, [place], Lipitor, Ventolin HFA inhaler. PAST MEDICAL HISTORY: Hypertension, history of DVT in his leg, factor V clotting disorder. PAST SURGICAL HISTORY: He had a chest tube after a punctured lung from a fall and aortic valve replacement. FAMILY HISTORY: Noncontributory. SOCIAL HISTORY: Alcohol socially. Denies any tobacco or illegal drug use. REVIEW OF SYSTEMS: 12-point review of systems is essentially negative except what is mentioned in the HPI. PHYSICAL EXAMINATION: VITAL SIGNS: Temperature 36.8, pulse 89, respirations 15, blood pressure 133/72. HEART: Regular rate and rhythm. LUNGS: Diminished but clear. ABDOMEN: Soft, positive bowel sounds in all 4 quadrants with no masses or tenderness noted. Chronic vascular changes noted in the lower extremities with some chronic anemia. LABORATORY DATA: Hemoglobin on admission was 7.2 [place] [address] CONSULTATION Name: EAMON SAN Annelise Room: [address]#: [id number] Admission: 05/24/21 Attend Phys: Jason Nagy Discharge: Date of : 55 Report #: [id number] hospital on 05/21, he was 8.8, white count is 15.6, platelets are 330. PT 14.6, INR 1.4. <ELECTRONICALLY SIGNED> By: Luke Andrew DO 05/24/21 1640 0934 [id number] Andrew DO /nt
--- NOTE | 2021-05-24 16:40 | CON ---
[address] [address] CONSULTATION Name: EAMON SAN Annelise Room: [address] IN M.R.#: [id number] Admission: 05/24/21 Attend Phys: Jason Nagy Discharge: Date of : 55 Report #: [id number] THIS REPORT FOR: cc: Carroll Chandler Steve T. DO Vardakis, Gregory DO ~ cc: Carroll Chandler DO DATE OF CONSULTATION: 05/24/2021 PRIMARY CARE PHYSICIAN: Carroll Chandler DO Please note at the time of this dictation, the patient was seen and physically examined by myself. REASON FOR CONSULTATION: GI bleed. HISTORY OF PRESENT ILLNESS: This is a 66-year-old male who presented back to the Emergency Room for having 2 very large maroon-looking stools yesterday evening, prompting him to come back. He states he was discharged on the , he was doing fine, had been restarted on his warfarin and Lovenox. He states he had light brown stools up until yesterday around 7:30 and then again at 9:30, he had another very large one, prompting him to come in, had come in to be further evaluated. The patient was admitted here on 04/23 for GI bleed. He underwent an EGD that was completely normal. On 04/30, he underwent a colonoscopy, in which 16 polyps were noted. His colon was very redundant, but no active bleeding was noted. Again, on 05/14, he had some rectal bleeding. Again, colonoscopy was performed. He was noted to have a 15 mm polyp that appeared to be bleeding, was removed with a hot snare, in the distal descending colon. The other polyps were left in the sigmoid, descending and transverse colon and internal hemorrhoids were also noted at that time. It was also noted on discharge, his hemoglobin was 8.8 and returning to the Emergency Room this time, he was 7.2. On discharge, his BUN was 41 and when he came back in, it was 50. The patient states he is very frustrated and he hopes he can get this figured out this time around. He denies any nausea, any vomiting, any loss of appetite or any abdominal pain at this time. His bowels have not moved since he has been here. ALLERGIES: No known drug allergies. MEDICATIONS: From home include Lovenox, Augmentin, warfarin, potassium, metolazone, Protonix, dexamethasone, iron, Lasix, Ventolin, Lipitor, [place], fish oil and verapamil. PAST MEDICAL HISTORY: Hypertension, DVT in his leg, [place] [address] CONSULTATION Name: CORRINEDONALDOADWOAALFREDO PruittReyes Castelan Room: [address] IN .R.#: [id number] Admission: 05/24/21 Attend Phys: Jason Nagy Discharge: Date of : 55 Report #: [id number] PAST SURGICAL HISTORY: He had a chest tube secondary to punctured lung from a fall and aortic valve replacement. FAMILY HISTORY: Noncontributory. SOCIAL HISTORY: Alcohol socially. Denies any tobacco or illegal drug use at this time. REVIEW OF SYSTEMS: A 12-point review of systems is essentially negative except what is mentioned in the HPI. PHYSICAL EXAMINATION: VITAL SIGNS: Temperature 36.8, pulse 89, respirations 15, blood pressure 133/72. HEART: Regular rate and rhythm. LUNGS: Clear. ABDOMEN: Soft, positive bowel sounds in all 4 quadrants with no masses or tenderness noted. EXTREMITIES: Lower extremities show some chronic vascular changes with chronic edema. LABORATORY DATA: Hemoglobin 7.2 last night, white count is 15.6, platelets 330. PT 14.6, INR 1.4, BUN is 50, creatinine 1.4. GFR is 51. LFTs are completely normal. Please note, on admission previously on 05/28, he was 7 and then he dropped down to 6.3 and then he is back up. Prior to discharge, he was 8.8 and back down to 7.2. IMPRESSION: 1. Acute anemia. 2. Rectal bleeding, maroon. 3. Anticoagulant therapy, warfarin secondary to aortic valve replacement and factor V disorder. 4. Leukocytosis. 5. History of colon polyps, 1 removed on 05/14 with a clip placed in the distal descending colon. PLAN: 1. Recheck H and H at noon. 2. CBC, CMP, PT, INR in the a.m. 3. We will consider clear liquids once the above H and H is known. 4. Further recommendations to be made after discussion of the patient and Dr. Andrew sees later today. [address] [address] CONSULTATION Name: EAMON SAN Room: 230-P ADM IN M.R.#: [id number] Admission: 05/24/21 Attend Phys: Jason Nagy Discharge: Date of : 55 Report #: [id number] Thank you for allowing us to participate in this patient's care. Please do not hesitate to call with any questions regarding this consult. <ELECTRONICALLY SIGNED> By: Luke Andrew DO 05/24/21 1640 [id number] [id number] Andrew DO /nt
--- NOTE | 2021-05-24 17:05 | EKG ---
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1955 Requested By: Joy Santiago Order Number: [id number] MD: Denver Garland Measurements Intervals [place] Rate: 88 P: 66 VA: 141 QRS: 49 QRSD: 93 T: 159 QT: 329 QTc: 398 Interpretive Statements Sinus rhythm Abnormal T, consider ischemia, lateral leads Compared to ECG 05/13/2021 17:18:20 Possible ischemia now present Sinus tachycardia no longer present Atrial premature complex(es) no longer present T-wave abnormality still present Electronically Signed On 05-24-2021 17:05:28 CDT by Denver Garland [email or web address] <ELECTRONICALLY SIGNED> By: Denver Garland MD, [facility] 05/24/21 1705 2324 2324 Denver Garland MD, [facility] /EPI
[2021-05-24 18:02] VITALS: BP 127/49
[2021-05-24 19:40] VITALS: BP 107/57; BP 121/41; BP 125/54; BP 127/49
[2021-05-25] VITALS (7 sets, daily range): BP systolic 116–141; BP diastolic 52–84
[2021-05-25 05:12] LABS: ABSOLUTE LYMPHOCYTES 0.9 thou/uL (0.8-5.3); ABSOLUTE MONOCYTES 1.3 thou/uL (0.0-1.2); ABSOLUTE NEUTROPHILS 11.6 thou/uL (1.6-8.1); BASOPHILS 0.2 %; EOSINOPHILS 0.2 %; HEMATOCRIT 20.8 % (42.0-52.0); LYMPHOCYTES 6.5 %; MCH 26.7 pg (26.0-34.0); MCHC 31.6 g/dL (28.0-37.0); MCV 84.3 fL (80.0-100.0); MONOCYTES 9.5 %; MPV 9.3 fl. (7.2-11.1); NUCLEATED RBCS 0 /100WBC; PLATELET COUNT* 237 thou/uL (150-400); POLYS 83.6 %; RBC 2.46 mil/uL (4.50-6.00); RDW-CV 18.9 % (10.5-14.5); WBC 13.9 thou/uL (4.0-11.0)
[2021-05-25 05:14] LABS: HEMOGLOBIN 6.6 gm/dL (14.0-18.0)
[2021-05-25 05:20] LABS: INR 1.4; PROTIME 14.6 Seconds (9.20-11.50)
[2021-05-25 05:27] LABS: ALBUMIN 2.2 g/dL (3.4-5.0); CALCIUM 7.7 mg/dL (8.5-10.1); TOTAL BILIRUBIN 0.3 mg/dL (<0.1-1.0); TOTAL PROTEIN 5.2 g/dL (6.4-8.2)
--- NOTE | 2021-05-25 08:46 | NUR ---
PATIENT FINISHED RECEIVING UNIT OF BLOOD WITH NO REACTIONS. PATIENT HAD NO COMPLAINTS OF PAIN AND HAD NO STOOLS OVER NIGHT. HBG THIS MORNING WAS STILL ONLY 6.6. RESULTS CALLED TO DR DAVIDSON ORDER WAS RECEIVED FOR ANOTHER UNIT OF BLOOD. IV WAS SALINE LOCKED. WILL CONTINUE TO MONITOR.
[2021-05-25 12:52] LABS: HEMATOCRIT 27.4 % (42.0-52.0); HEMOGLOBIN 8.5 gm/dL (14.0-18.0)
--- NOTE | 2021-05-25 16:04 | NUR ---
POC UPDATE: BARRIERS TO DC IS LOW HEMOGLOBIN.
[2021-05-26 00:07] VITALS: BP 118/58
[2021-05-26 03:46] VITALS: BP 119/63
[2021-05-26 04:34] LABS: HEMATOCRIT 25.9 % (42.0-52.0); HEMOGLOBIN 8.1 gm/dL (14.0-18.0); MCH 26.9 pg (26.0-34.0); MCHC 31.4 g/dL (28.0-37.0); MCV 85.8 fL (80.0-100.0); MPV 9.2 fl. (7.2-11.1); NUCLEATED RBCS 0 /100WBC; PLATELET COUNT* 233 thou/uL (150-400); RBC 3.02 mil/uL (4.50-6.00); RDW-CV 18.5 % (10.5-14.5); WBC 13.8 thou/uL (4.0-11.0)
[2021-05-26 05:13] LABS: ALBUMIN 2.5 g/dL (3.4-5.0); CALCIUM 7.9 mg/dL (8.5-10.1); CREATININE 0.8 mg/dL (0.6-1.3); TOTAL BILIRUBIN 0.6 mg/dL (<0.1-1.0); TOTAL PROTEIN 5.9 g/dL (6.4-8.2)
--- NOTE | 2021-05-26 05:42 | NUR ---
PATIENT SLEPT MOST OF THE NIGHT. IV REMAINS SALINE LOCKED. PATIENT IS POSSIBLY DISCHARGING HOME TODAY. WILL CONTINUE TO MONITOR.
[2021-05-26 06:18] LABS: ABSOLUTE LYMPHOCYTES 1.1 thou/uL (0.8-5.3); ABSOLUTE MONOCYTES 0.4 thou/uL (0.0-1.2); ABSOLUTE NEUTROPHILS 12.3 thou/uL (1.6-8.1); METAMYELOCYTES 1 %; PLATELET ESTIMATE ADEQUATE
[2021-05-26 08:00] VITALS: BP 120/59
[2021-05-26] MEDS ORDERED: WARFARIN SODIU7.5 MG PO (09:06)
[2021-05-26 14:16] VITALS: BP 120/59
--- NOTE | 2021-05-26 15:26 | NUR ---
Case and plan of care reviewed with MD each weekday during patient's length of stay. Continue plan of care per MD orders for current dx. Plan is for discharge with HH today. CM attempted to reach pt in room, had already been discharge to home with . HH preference and arrangements have not been completed. Called pts [phone] and left voicemail Called Milagros [phone] with no answer. Will continue to reach out to patient.
--- NOTE | 2021-05-26 17:13 | NUR ---
Patient discharge to home . all discharge instruction and education completed . IV LINE removed before discharge. no issue voiced at this time
--- NOTE | 2021-05-26 17:47 | CON ---
[address] [address] CONSULTATION Name: EAMON SAN Room: [address] IN .R.#: [id number] Admission: 05/24/21 Attend Phys: Jason Nagy Discharge: 05/26/21 Date of : 55 Report #: [id number] THIS REPORT FOR: cc: Carroll Chandler Steve T. DO Liston, Michael J. MD [facility] ~ cc: Carroll Chandler DO, Vardakis DATE OF CONSULTATION: 05/24/2021 CARDIOLOGY CONSULTATION INDICATION: Recurrent GI bleeding. HISTORY OF PRESENT ILLNESS: The patient is a very pleasant 66-year-old gentleman who was just in the hospital with GI bleeding, 2 other times this past month. He has a history of mechanical aortic valve replacement as well as factor V Leiden. On his initial admission, he was found to be supratherapeutic with his INR due to warfarin. After his last hospitalization, he was discharged to home on Lovenox bridging as his INR had normalized after vitamin K administration. He was not having any cardiac complaint. The patient returns with maroon stools. He has blood loss anemia. He is here for repeat evaluation. His INR on admission is 1.4. He has a history of severe calcific aortic stenosis for which he had a mechanical aortic valve placed in 2009. He is chronically anticoagulated for this. He has factor V Leiden. He does have a history of DVT in the past. He has a history of hypertension and pneumothorax. FAMILY HISTORY: Noncontributory. SOCIAL HISTORY: The patient quit smoking remotely. He drinks alcohol rarely. HOME MEDICATIONS: Albuterol inhaler 1 puff daily, atorvastatin 40 mg at bedtime, fish oil 1000 mg daily, iron sulfate 325 mg daily, furosemide 40 mg daily, [place] 10/325 two tablets q. 6 hours p.r.n., losartan/hydrochlorothiazide 100/12.5 mg 1 tablet daily, verapamil ER 240 mg daily and warfarin 10 mg daily. ALLERGIES: None documented. PHYSICAL EXAMINATION: VITAL SIGNS: Relatively stable. Blood pressure is 108/50, pulse is 110 and regular. GENERAL: This is a pleasant gentleman who does not appear to be in distress. HEENT: Head is normocephalic. Extraocular muscles intact[place] [address] CONSULTATION Name: EAMON SAN Annelise Room: [address] IN [facility]#: [id number] Admission: 05/24/21 Attend Phys: Jason Nagy Discharge: 05/26/21 Date of : 55 Report #: [id number] are moist. NECK: Shows no jugular venous distention. CHEST: Clear to auscultation. CARDIAC: Regular rhythm with an aortic valve, clicks are crisp. Soft, 2/6 systolic ejection murmur. I do not appreciate gallop. ABDOMEN: Protuberant. EXTREMITIES: Show 3+ chronic edema. LABORATORY DATA: Reviewed. Sodium 139, potassium 4.3, chloride 102, bicarb 35, BUN 52, creatinine 1.2, serum glucose 102. LFTs within normal limits. INR 1.4. Hemoglobin on arrival was 7.2. IMPRESSION AND RECOMMENDATIONS: 1. Recurrent gastrointestinal bleeding. The patient had been on Lovenox. This is being held. INR has been subtherapeutic. Holding warfarin at this time. We will continue to hold warfarin and Lovenox. The patient will be transfused to improve hemoglobin to 7-8. 2. Mechanical aortic valve has been in place since 2009. The patient should be able to tolerate a brief period of time of no anticoagulation, although long-term, he should return to anticoagulation. 3. Gastrointestinal bleeding. Source unknown. He possibly has some small bowel bleeding. Colonoscopy last week was fairly unrevealing. EGD today was unrevealing. Transfuse to hemoglobin as outlined above. 4. Factor V Leiden. He does have a remote history of deep venous thrombosis. The patient at risk for recurrent clotting abnormality. 5. Chronic renal insufficiency, presently appears stable. 6. History of opacification of the left lung on last admission. We will follow up chest x-ray. 7. Chronic lower extremity edema. Continue diuresis as tolerated. <ELECTRONICALLY SIGNED> By: Jorge Luis Gonzalez MD, FACC 05/26/21 1747 1735 21Jorge Luis Gonzalez MD, FACC /nt
--- NOTE | 2021-05-27 09:52 | NUR ---
Called pt [phone] left VM requesting call back to set up home health or to let CM know doesn't want it.
== END 2021-05-26 14:35 | disposition home health service (06) | DRG 377 ==
LOC: M.ERS 23:22 → M.TBA-ER 05-24 02:45 → M.2W 05-24 02:45
PROVIDERS: Internal Medicine; Nurse Practitioner Adult Health; Personal Emergency Response Attendant; ADMIT Internal Medicine; ATTEND Internal Medicine
PROC: 0DJD8ZZ Inspection of Lower Intestinal Tract, Via Natural or Artificial Opening Endoscopic (ICD-10-PCS; principal; 2021-05-24)
PROC: 30233N1 Transfusion of Nonautologous Red Blood Cells into Peripheral Vein, Percutaneous Approach (ICD-10-PCS; 2021-05-25)
DX: K92.2 Gastrointestinal hemorrhage, unspecified (principal); N17.0 Acute kidney failure with tubular necrosis; D62 Acute posthemorrhagic anemia; D68.69 Other thrombophilia; Z68.41 Body mass index [BMI] 40.0-44.9, adult; B37.81 Candidal esophagitis; E66.01 Morbid (severe) obesity due to excess calories; I12.9 Hypertensive chronic kidney disease with stage 1 through stage 4 chronic kidney disease, or unspecified chronic kidney disease; N18.9 Chronic kidney disease, unspecified; K44.9 Diaphragmatic hernia without obstruction or gangrene; G47.33 Obstructive sleep apnea (adult) (pediatric); E88.09 Other disorders of plasma-protein metabolism, not elsewhere classified; D72.829 Elevated white blood cell count, unspecified; K22.9 Disease of esophagus, unspecified; Z20.822 Contact with and (suspected) exposure to COVID-19; Z95.4 Presence of other heart-valve replacement; Z86.718 Personal history of other venous thrombosis and embolism; Z79.01 Long term (current) use of anticoagulants; Z79.899 Other long term (current) drug therapy; Z87.891 Personal history of nicotine dependence